=== PATIENT | female | born 1935 | race Caucasian/White ===

== ENCOUNTER 2018-04-02 18:13 | Inpatient (IN) ==
[2018-04-02] MEDS ORDERED: Morphine Inj 4 MG/ML Vial IV.PUSH ONE (19:04)
--- NOTE | 2018-04-02 19:20 | ED ---
HPI General Chief complaint: Weakness Stated complaint: weakness Time Seen by Provider: 04/02/18 18:52 Source: patient, family and EMS Mode of arrival: EMS Limitations: no limitations History of Present Illness HPI Narrative: 82-year-old female the presents to the ED for evaluation of weakness and back pain. Patient has had this for the past 2-3 days. She does have a history of back problems in the past having had a fracture sustained to her lower lumbar area at the beginning of the year. Per patient she is not from here but she is moving to this area. She apparently has been moved from [place] to this area. Apparently for the past 2 days she has been having back pain. Per patient is presently getting worse to the point where she cannot walk anymore. She states that the pain goes to both lower legs. Denies any urinary symptoms but states that she does go pee a lot and feels like she has to go a lot. No history of UTIs in the past. She does have a history of osteoporosis per patient. Denies any falls or injuries. No numbness, tingling , weakness. No chest pain or shortness of breath. No head injury. No bowel movement issues. Pain per patient is 10 out of 10 especially in the lower back. Related Data Home Medications Medication Instructions Recorded Confirmed apixaban [Eliquis] 2.5 mg PO BID 04/02/18 04/02/18 calcium carbonate-vitamin D3 1 tab PO DAILY 04/02/18 04/02/18 [Calcium 600 + D(3)] cholecalciferol (vitamin D3) 1,000 unit PO DAILY 04/02/18 04/02/18 [Vitamin D3] enalapril maleate 5 mg PO DAILY 04/02/18 04/02/18 furosemide 40 mg PO DAILY 04/02/18 04/02/18 gabapentin 100 mg PO TID 04/02/18 04/02/18 metoprolol succinate 100 mg PO BID 04/02/18 04/02/18 potassium chloride [Klor-Con M10] 10 meq PO DAILY 04/02/18 04/02/18 Allergies Allergy/AdvReac Type Severity Reaction Status Date / Time No Known Allergies Allergy Verified 04/02/18 18:50 Review of Systems ROS: all other systems reviewed are negative [facility] Medical History Medical History A-fib (Acute) HTN (hypertension) (Acute) Lumbar vertebral fracture (Acute) Social History Social History Substance History: No History of Abuse Second Hand Smoke Exposure: No Smoking Status: Never smoker How Often Do You Have a Drink Containing Alcohol: Never Recent Travel in [facility] within the Last 8 Weeks: No Recent Out of Country Travel within the Last 8 Weeks: No Immunization History Tetanus Immunization: Unsure Exam Narrative Exam Narrative: GENERAL: Well groomed. SKIN: Focused skin assessment warm/dry. HEAD: Atraumatic. Normocephalic. EYES: Pupils equal and round. No scleral icterus. No injection or drainage. ENT: No nasal bleeding or discharge. Mucous membranes pink and moist. NECK: Trachea midline. No JVD. CARDIOVASCULAR: Regular rate and rhythm. No murmur appreciated. RESPIRATORY: No accessory muscle use. Clear to auscultation. Breath sounds equal bilaterally. GASTROINTESTINAL: Abdomen soft, non-tender, nondistended. Hepatic and splenic margins not palpable. MUSCULOSKELETAL: No obvious deformities. No clubbing. No cyanosis. No edema. NEUROLOGICAL: Awake and alert. No obvious cranial nerve deficits. Motor grossly within normal limits. Normal speech. PSYCHIATRIC: Appropriate mood and affect; insight and judgment normal. Course Initial Documented Vital Signs Temperature 98.6 F 04/02/18 18:42 Pulse Rate 77 04/02/18 18:42 Respiratory Rate 24 04/02/18 18:42 Blood Pressure 150/70 H 04/02/18 18:42 Pulse Oximetry 95 04/02/18 18:42 Last Documented Vital Signs Temperature 97.2 F L 04/03/18 08:00 Pulse Rate 62 04/03/18 08:00 Respiratory Rate 18 04/03/18 11:07 Blood Pressure 139/89 04/03/18 08:00 Pulse Oximetry 95 04/03/18 09:41 Medical Decision Making MDM Narrative Medical decision making narrative: 82-year-old female that presents to the ED for evaluation of back pain and weakness. Patient was properly examined and was found to have signs and symptoms concerning for fractures. Labs and imaging were ordered. Labs and imaging did show what appears to be bacteriuria as well as what appears to be acute L4 fracture. Patient does have multiple compression fractures from her old injury. Patient also feels better with the pain medication cannot really sit up without having severe pain. Patient lives with an elderly family member and informed she is in a safe discharge. The recommend admission for further evaluation and treatment. Patient herself seems to prefer no surgical options but I think it would be reasonable to have a neurosurgeon evaluate her to see if she will benefit from this. She does have severe osteoporosis versus Paget's disease and will require treatment for this as well. Patient agrees with admission plan. Case discussed with Dr. Ely who agrees to admission to her service. Medical Screen Exam Complete: Yes Emergency Medical Condition: Yes Differential Diagnosis Differential Diagnosis: Fracture versus bruise versus contusion versus weakness versus UTI versus sepsis Medical Records Medical records reviewed: Yes I reviewed the patient's medical records. Lab Data Lab results reviewed: Yes I reviewed the patient's lab results. Result diagrams: 04/03/18 05:02 04/03/18 05:02 Lab Results 04/02/18 04/02/18 04/02/18 Range/Units 19:36 19:36 19:36 WBC (4.0-11.0) th/mm3 RBC (4.00-5.30) mil/mm3 Hgb (11.6-15.3) gm/dL Hct (35.0-46.0) % MCV (80.0-100.0) fL MCH (27.0-34.0) pg MCHC (32.0-36.0) % RDW (11.6-17.2) % Plt Count (150-450) th/mm3 MPV (7.0-11.0) fL Neut % (Auto) (16.0-70.0) % Lymph % (Auto) (9.0-44.0) % Hunt % (Auto) (0.0-8.0) % Eos % (Auto) (0.0-4.0) % Baso % (Auto) (0.0-2.0) % Neut # (Auto) (1.8-7.7) th/mm3 Lymph # (Auto) (1.0-4.8) th/mm3 Hunt # (Auto) (0.0-0.9) th/mm3 Eos # (Auto) (0.0-0.4) th/mm3 Baso # (Auto) (0.0-0.2) th/mm3 WBC Differential Differential Comment PT 11.8 H (9.8-11.6) sec INR 1.2 Ratio Sodium (136-145) meq/L Potassium (3.5-5.1) meq/L Chloride (98-107) meq/L Carbon Dioxide (21.0-32.0) meq/L Anion Gap (5-15) meq/L BUN (7-18) mg/dL Creatinine (0.50-1.00) mg/dL Estimated GFR (>89) mL/min Random Glucose (74-106) mg/dL Hemoglobin A1c (4.3-6.0) % Calcium (8.5-10.1) mg/dL Magnesium (1.5-2.5) mg/dL Total Bilirubin (0.2-1.0) mg/dL AST (15-37) U/L ALT (10-53) U/L Alkaline Phosphatase (45-117) U/L Troponin I (0.02-0.05) ng/mL B-Natriuretic Peptide 166 H (0-100) pg/mL Total Protein (6.4-8.2) g/dL Albumin (3.4-5.0) g/dL Urine Color Yellow (Yellw/Straw) Urine Clarity Clear (Clear) Urine pH 5.0 (5.0-8.5) Ur Specific Dumas 1.010 (1.002-1.035) Urine Protein Negative (Neg-Trace) mg/dL Urine Glucose (UA) Negative (Negative) mg/dL Urine Ketones Negative (Negative) mg/dL Urine Occult Blood Small H (Negative) Urine Nitrate Negative (Negative) Urine Bilirubin Negative (Negative) Urine Urobilinogen Less than 2 (Less than 2) mg/dL Ur Leukocyte Esterase Negative (Negative) Urine RBC 1 (0-3) /hpf Urine WBC 2 (0-5) /hpf Ur Squamous Epith Cells 3 (0-5) /hpf Urine Bacteria Rare H (None) /hpf Granular Casts 9 (None) /lpf Urine Mucus Few H (Occasional) /lpf Micro UA Comment Culture not ind Ur Microscopic Review Not Reportable Urine Culture Comments Culture not ind 04/02/18 04/02/18 04/03/18 Range/Units 19:52 19:52 05:02 WBC 9.0 4.5 (4.0-11.0) th/mm3 RBC 4.15 4.06 (4.00-5.30) mil/mm3 Hgb 12.4 12.1 (11.6-15.3) gm/dL Hct 36.8 36.3 (35.0-46.0) % MCV 88.7 89.4 (80.0-100.0) fL MCH 29.8 29.8 (27.0-34.0) pg MCHC 33.6 33.3 (32.0-36.0) % RDW 15.8 15.6 (11.6-17.2) % Plt Count 163 140 L (150-450) th/mm3 MPV 9.1 8.9 (7.0-11.0) fL Neut % (Auto) 69.1 83.6 H (16.0-70.0) % Lymph % (Auto) 21.2 14.5 (9.0-44.0) % Hunt % (Auto) 9.0 H 1.8 (0.0-8.0) % Eos % (Auto) 0.4 0.0 (0.0-4.0) % Baso % (Auto) 0.3 0.1 (0.0-2.0) % Neut # (Auto) 6.2 3.8 (1.8-7.7) th/mm3 Lymph # (Auto) 1.9 0.7 L (1.0-4.8) th/mm3 Hunt # (Auto) 0.8 0.1 (0.0-0.9) th/mm3 Eos # (Auto) 0.0 0.0 (0.0-0.4) th/mm3 Baso # (Auto) 0.0 0.0 (0.0-0.2) th/mm3 WBC Differential . . Differential Comment Auto diff final Auto diff final PT (9.8-11.6) sec INR Ratio Sodium 141 (136-145) meq/L Potassium 3.5 (3.5-5.1) meq/L Chloride 103 (98-107) meq/L Carbon Dioxide 30.1 (21.0-32.0) meq/L Anion Gap 8 (5-15) meq/L BUN 23 H (7-18) mg/dL Creatinine 0.94 (0.50-1.00) mg/dL Estimated GFR 57 L (>89) mL/min Random Glucose 100 (74-106) mg/dL Hemoglobin A1c (4.3-6.0) % Calcium 8.1 L (8.5-10.1) mg/dL Magnesium 1.9 (1.5-2.5) mg/dL Total Bilirubin 0.8 (0.2-1.0) mg/dL AST 18 (15-37) U/L ALT 11 (10-53) U/L Alkaline Phosphatase 128 H (45-117) U/L Troponin I Less than 0.02 L (0.02-0.05) ng/mL B-Natriuretic Peptide (0-100) pg/mL Total Protein 6.7 (6.4-8.2) g/dL Albumin 2.9 L (3.4-5.0) g/dL Urine Color (Yellw/Straw) Urine Clarity (Clear) Urine pH (5.0-8.5) Ur Specific Dumas (1.002-1.035) Urine Protein (Neg-Trace) mg/dL Urine Glucose (UA) (Negative) mg/dL Urine Ketones (Negative) mg/dL Urine Occult Blood (Negative) Urine Nitrate (Negative) Urine Bilirubin (Negative) Urine Urobilinogen (Less than 2) mg/dL Ur Leukocyte Esterase (Negative) Urine RBC (0-3) /hpf Urine WBC (0-5) /hpf Ur Squamous Epith Cells (0-5) /hpf Urine Bacteria (None) /hpf Granular Casts (None) /lpf Urine Mucus (Occasional) /lpf Micro UA Comment Ur Microscopic Review Urine Culture Comments 04/03/18 04/03/18 Range/Units 05:02 05:02 WBC (4.0-11.0) th/mm3 RBC (4.00-5.30) mil/mm3 Hgb (11.6-15.3) gm/dL Hct (35.0-46.0) % MCV (80.0-100.0) fL MCH (27.0-34.0) pg MCHC (32.0-36.0) % RDW (11.6-17.2) % Plt Count (150-450) th/mm3 MPV (7.0-11.0) fL Neut % (Auto) (16.0-70.0) % Lymph % (Auto) (9.0-44.0) % Hunt % (Auto) (0.0-8.0) % Eos % (Auto) (0.0-4.0) % Baso % (Auto) (0.0-2.0) % Neut # (Auto) (1.8-7.7) th/mm3 Lymph # (Auto) (1.0-4.8) th/mm3 Hunt # (Auto) (0.0-0.9) th/mm3 Eos # (Auto) (0.0-0.4) th/mm3 Baso # (Auto) (0.0-0.2) th/mm3 WBC Differential Differential Comment PT (9.8-11.6) sec INR Ratio Sodium 141 (136-145) meq/L Potassium 4.7 D (3.5-5.1) meq/L Chloride 100 (98-107) meq/L Carbon Dioxide 33.3 H (21.0-32.0) meq/L Anion Gap 8 (5-15) meq/L BUN 29 H (7-18) mg/dL Creatinine 1.14 H (0.50-1.00) mg/dL Estimated GFR 46 L (>89) mL/min Random Glucose 142 H (74-106) mg/dL Hemoglobin A1c 5.9 (4.3-6.0) % Calcium 9.0 D (8.5-10.1) mg/dL Magnesium (1.5-2.5) mg/dL Total Bilirubin (0.2-1.0) mg/dL AST (15-37) U/L ALT (10-53) U/L Alkaline Phosphatase (45-117) U/L Troponin I (0.02-0.05) ng/mL B-Natriuretic Peptide (0-100) pg/mL Total Protein (6.4-8.2) g/dL Albumin (3.4-5.0) g/dL Urine Color (Yellw/Straw) Urine Clarity (Clear) Urine pH (5.0-8.5) Ur Specific Dumas (1.002-1.035) Urine Protein (Neg-Trace) mg/dL Urine Glucose (UA) (Negative) mg/dL Urine Ketones (Negative) mg/dL Urine Occult Blood (Negative) Urine Nitrate (Negative) Urine Bilirubin (Negative) Urine Urobilinogen (Less than 2) mg/dL Ur Leukocyte Esterase (Negative) Urine RBC (0-3) /hpf Urine WBC (0-5) /hpf Ur Squamous Epith Cells (0-5) /hpf Urine Bacteria (None) /hpf Granular Casts (None) /lpf Urine Mucus (Occasional) /lpf Micro UA Comment Ur Microscopic Review Urine Culture Comments Imaging Data Attestation: I personally reviewed and interpreted this imaging study as follows : Radiologist's impression: Lumbar Spine CT 04/02/18 19:04 CONCLUSION: 1. Horizontal lucency seen throughout the L4 vertebral body concerning for acute fracturing through the L4 vertebral body. There is thickening of the trabecula, increased density in the pedicles and lamina concerning for underlying processes such as Paget's disease. Other causes for sclerosis including prior infection or metastatic lesions could have this appearance. 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 2. Compression deformities at the T12, L1, L2 and L3 vertebral bodies as described above. These are likely chronic. Thoracic Spine CT 04/02/18 19:04 CONCLUSION: 1. Mild superior endplate compression fracture of T12. 2. Severe central wedge-shaped compression deformity of L1. 3. Mild compression deformity of L3 superior endplate. 4. These compression fractures are of unknown chronicity given lack of prior exams. If patient has pain on palpation of the spinous processes at these levels , consider MRI examination to evaluate for bone marrow edema and determine if patient may benefit from cement augmentation. 5. No significant bony central canal or neural foraminal compromise. 6. Coronary artery calcifications. 7. Mild diffuse patchy groundglass opacities in the visualized portions of the lungs which may reflect mild pulmonary edema or diffuse volume loss. 8. Mild to moderate hiatal hernia. Venous Doppler Study 04/02/18 19:05 CONCLUSION: No DVT. Chest X-Ray 04/02/18 22:24 CONCLUSION: Underinflated examination with mild subsegmental atelectasis at the lung bases. Otherwise, no acute cardiopulmonary abnormality is identified. Lumbar Spine MRI 04/03/18 00:00 CONCLUSION: 1. Extensive compression fractures throughout the lumbar spine with chronic appearing injuries from T12 through L3. 2. Vertebral plana of L4 with central bony edema characteristic of an acute or subacute injury. 3. Bony edema in the articulating facets at L4 bilaterally. This may be chronic as there is significant facet hypertrophy bilaterally. 4. I believe there is also an acute or subacute fracture through the S1 vertebral body superiorly with possible acute or subacute fractures through the articulating facets at the lumbosacral junction. 5. Despite the extensive compression fractures of varying ages, the spinal canal and neural foramina appear to be adequate throughout with no nerve root compromise. Thoracic Spine MRI 04/03/18 00:00 CONCLUSION: 1. Chronic T12 compression fracture. 2. 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 3. No significant neural foraminal narrowing. Discharge Plan Discharge Disposition Patient Disposition: 30 Still Patient Discharge Details Diagnosis: Closed L4 vertebral fracture, Weakness Physicians Team ED Provider: Elayne Acosta ED Midlevel Provider: Juan Antonio Childs Primary Care Provider: NON STAFF,PROVIDER Attending Provider: Mauro Martell Other Providers: Asaf Egan ; [employer] Status ED Status: Left Department Discharge Information Discharge Date/Time: 04/03/18 00:28
--- NOTE | 2018-04-02 20:34 | CT ---
EXAM DATE: 04/02/2018 7:28 PM EDT AGE/SEX: 82 years / Female INDICATIONS: Chronic back pain. General weakness. CLINICAL DATA: This is the patient's initial encounter. Patient reports that signs and symptoms have been present for 4 - 6 months and indicates a pain score of 10/10. MEDICAL/SURGICAL HISTORY: Hypertension. A-Fib. . Lumbar surgery. RADIATION DOSE: 35.86 CTDI (mGy) ; Combined studies COMPARISON: No prior exams available for comparison. TECHNIQUE: Contiguous axial images were acquired using a multirow detector CT scanner without contra st. Multiplanar reconstruction in the sagittal and coronal planes was performed. Using automated exp osure control and adjustment of the mA and/or kV according to patient size, radiation dose was kept a s low as reasonably achievable to obtain optimal diagnostic quality images. DICOM format image data is available electronically for review and comparison. FINDINGS: Moderate superior endplate compression deformity of T12. Without retropulsed fragments. Severe centra l wedge-shaped compression deformity of L1. Mild compression deformity of L3 superior endplate. No re tropulsed fragments. Exaggerated kyphosis of the lumbar spine. Sagittal alignment is however maintain ed. Bony central canal is grossly patent. Bridging flowing anterior osteophytes in the proximal thora cic spine. Because paraspinal soft tissues demonstrate coronary artery calcifications. Visualized tho racic aorta is normal in caliber. There is a small to moderate-sized hiatal hernia. Visualized portio ns of the lower lungs demonstrate mild diffuse patchy groundglass opacities bilaterally. T1 - T2: Anterior osteophytes. T2 - T3: Mild disc space narrowing and anterior osteophytes. Bony central canal and neural foramina are patent. T3 - T4: Mild disc space narrowing and anterior osteophytes. Bony central canal and neural foramina are patent. T4 - T5: Mild disc space narrowing and anterior osteophytes. Bony central canal and neural foramina are patent. T5 - T6: Mild disc space narrowing and anterior osteophytes. Bony central canal and neural foramina are patent. T6 - T7: Mild disc space narrowing and anterior osteophytes. Bony central canal and neural foramina are patent. T7 - T8: Mild disc space narrowing and anterior osteophytes. Bony central canal and neural foramina are patent. T8 - T9: Mild disc space narrowing and anterior osteophytes. Bony central canal and neural foramina are patent. T9 - T10: Mild disc space narrowing and anterior osteophytes. Bony central canal and neural foramina are patent. T10 - T11: Mild diffuse disc bulge. Bony central canal and neural foramina are patent. T11 - T12: Vacuum disc phenomenon with mild posterior disc osteophytes. Bony central canal is patent . Mild right-sided bony neural foraminal narrowing. T12 - L1: Posterior disc osteophytes. Bony central canal is patent. Bony neural foramina are patent. Mild bilateral facet arthropathy. CONCLUSION: 1. Mild superior endplate compression fracture of T12. 2. Severe central wedge-shaped compression deformity of L1. 3. Mild compression deformity of L3 superior endplate. 4. These compression fractures are of unknown chronicity given lack of prior exams. If patient has p ain on palpation of the spinous processes at these levels, consider MRI examination to evaluate for b one marrow edema and determine if patient may benefit from cement augmentation. 5. No significant bony central canal or neural foraminal compromise. 6. Coronary artery calcifications. 7. Mild diffuse patchy groundglass opacities in the visualized portions of the lungs which may refle ct mild pulmonary edema or diffuse volume loss. 8. Mild to moderate hiatal hernia. Electronically signed by: Tayo Mendez MD 04/02/2018 8:32 PM EDT
--- NOTE | 2018-04-02 20:50 | CT ---
EXAM DATE: 04/02/2018 7:28 PM EDT AGE/SEX: 82 years / Female INDICATIONS: Chronic lower back pain. General weakness. CLINICAL DATA: This is the patient's initial encounter. Patient reports that signs and symptoms have been present for 4 - 6 months and indicates a pain score of 10/10. MEDICAL/SURGICAL HISTORY: Hypertension. A-Fib. . Lumbar fracture. RADIATION DOSE: 35.86 CTDI (mGy) ; Combined studies COMPARISON: [facility] [place] THORACIC SPINE W/O CONTRAST, 04/02/2018. . TECHNIQUE: Contiguous axial images were acquired with a multirow detector CT scanner without contras t. Multiplanar reconstructions in the sagittal and coronal plane were also performed. Using automate d exposure control and adjustment of the mA and/or kV according to patient size, radiation dose was k ept as low as reasonably achievable to obtain optimal diagnostic quality images. DICOM format image data is available electronically for review and comparison. FINDINGS: Vertebrae: There is a concave deformity of the superior aspect of T12 more fully described in the CT of the thoracic spine. There are biconcave deformities seen at the superior and inferior plates of L 1 and L4, and to a lesser degree at the L2 vertebral bodies. There is a concave deformity at the supe rior endplate of L3. There is been over 75% loss of height at L1 and L4. There is milder 50% loss of height at T12, L2 and L3. There is increased density throughout the L4 level extending into the poste rior elements which could represent underlying processes such as Paget's disease or metastatic diseas e. There is horizontal lucency seen throughout the L4 vertebral body concerning for more acute fract uring of the body L4 vertebral body. Alignment: Normal. No subluxation. T12-L1: Again noted is the compression deformities at the superior endplate of L1. There is some pos terior angulation at the posterior superior aspect of the L1 vertebral body causing a mild impression on the anterior epidural space. The disc appears intact. No evidence of disc bulge or protrusion. The neural foramina are patent bilaterally. L1-L2: The thecal sac has a normal diameter. No evidence of disc bulge or protrusion. The neural f oramina are patent bilaterally. L2-L3: Again noted is the compression deformity at the superior endplate of L3. There is some geothermal operations engineer ior angulation at the posterior superior aspect of the L3 vertebral body causing a mild impression on the anterior epidural space. The disc appears intact. No evidence of disc bulge or protrusion. The neural foramina are patent bilaterally. The thecal sac has a normal diameter. No evidence of disc bulge or protrusion. The neural foramina are patent bilaterally. L3-L4: The posterior disc margin appears intact. There is hypertrophy and bony thickening at the L4 pedicle and lamina. There appear to be fusion at the facet joints. These changes do cause mild narrow ing of the thecal sac especially at the posterior lateral margins of the thecal sac. L4-L5: The thecal sac has a normal diameter. No evidence of disc bulge or protrusion. The neural fo ramina are patent bilaterally. There is facet hypertrophy. L5-S1: The disc demonstrates decreased height. There is minimal bulging without significant stenosis . The neural foramina are patent. There is moderate facet hypertrophy. CONCLUSION: 1. Horizontal lucency seen throughout the L4 vertebral body concerning for acute fracturing through the L4 vertebral body. There is thickening of the trabecula, increased density in the pedicles and la nuha concerning for underlying processes such as Paget's disease. Other causes for sclerosis includin g prior infection or metastatic lesions could have this appearance. Paget's disease is thought more l ikely. 2. Compression deformities at the T12, L1, L2 and L3 vertebral bodies as described above. These are likely chronic. Electronically signed by: Martín Schultz MD 04/02/2018 8:48 PM EDT
--- NOTE | 2018-04-02 21:00 | US ---
EXAM DATE: 04/02/2018 7:05 PM EDT AGE/SEX: 82 years / Female INDICATIONS: Bilateral leg edema. CLINICAL DATA: This is the patient's initial encounter. Patient reports that signs and symptoms have been present for 1 month and indicates a pain score of 4/10. MEDICAL/SURGICAL HISTORY: Hypertension. Lumbar fracture. Afib. None. COMPARISON: No prior exams available for comparison. TECHNIQUE: Venous ultrasound of both lower extremities was performed from the inguinal ligament to t he proximal calf. Real-time, color Doppler and spectral tracing, compression and augmentation techni ques were used. FINDINGS: Right Leg: Normal compression of the deep venous system from the inguinal region to the proximal bishnu f. No echogenic clot is seen. Normal response of the venous system to augmentation and respiration. Left Leg: Normal compression of the deep venous system from the inguinal region to the proximal calf . No echogenic clot is seen. Normal response of the venous system to augmentation and respiration. Other: None. CONCLUSION: No DVT. Electronically signed by: Martín Schultz MD 04/02/2018 8:59 PM EDT
[2018-04-02 21:11] LABS: Bacteria,Urine Rare /hpf; Bilirubin,Urine Negative (Negative); Clarity,Urine Clear (Clear); Color,Urine Yellow (Yellw/Straw); Glucose,Urine (UA) Negative (Negative); Leukocyte Esterase,Urine Negative (Negative); Mucus,Urine Few /lpf (Occasional); Nitrite,Urine Negative (Negative); Squamous Epithelial Cell,Urine 3 /hpf (0-5)
[2018-04-02 21:15] LABS: Baso % (Auto) 0.3 % (0.0-2.0); Eos % (Auto) 0.4 % (0.0-4.0); Hematocrit 36.8 % (35.0-46.0); Hemoglobin 12.4 gm/dL (11.6-15.3); Lymph # (Auto) 1.9 th/mm3 (1.0-4.8); Lymph % (Auto) 21.2 % (9.0-44.0); Mean Corpuscular HGB Conc 33.6 % (32.0-36.0); Mean Corpuscular Hemoglobin 29.8 pg (27.0-34.0); Mean Corpuscular Volume 88.7 fL (80.0-100.0); Mean Platelet Volume 9.1 fL (7.0-11.0); Mono # (Auto) 0.8 th/mm3 (0.0-0.9); Neut # (Auto) 6.2 th/mm3 (1.8-7.7); Neut % (Auto) 69.1 % (16.0-70.0); Platelet Count 163 th/mm3 (150-450); Red Blood Count 4.15 mil/mm3 (4.00-5.30); Red Cell Distribution Width 15.8 % (11.6-17.2)
[2018-04-02 21:18] LABS: INR 1.2 Ratio; Prothrombin Time 11.8 sec (9.8-11.6)
[2018-04-02 21:28] LABS: Alanine Aminotransferase 11 U/L (10-53)
[2018-04-02 21:31] LABS: Alkaline Phosphatase 128 U/L (45-117); Total Protein 6.7 g/dL (6.4-8.2)
[2018-04-02 21:34] LABS: Albumin 2.9 g/dL (3.4-5.0); Anion Gap 8 meq/L (5-15); Aspartate Aminotransferase 18 U/L (15-37); Blood Urea Nitrogen 23 mg/dL (7-18); Calcium 8.1 mg/dL (8.5-10.1); Carbon Dioxide 30.1 meq/L (21.0-32.0); Chloride 103 meq/L (98-107); Glomerular Filtration Rate 57 mL/min (>89); Glucose,Random 100 mg/dL (74-106); Magnesium 1.9 mg/dL (1.5-2.5); Potassium 3.5 meq/L (3.5-5.1); Sodium 141 meq/L (136-145)
[2018-04-02] MEDS ORDERED: Acetaminophen 325 MG Tablet PO PRN (22:54)
[2018-04-02] MEDS ORDERED: Bisacodyl 10 MG Supp RECTAL PRN (22:54)
--- NOTE | 2018-04-02 22:58 | XR ---
EXAM DATE: 04/02/2018 10:24 PM EDT AGE/SEX: 82 years / Female INDICATIONS: Shortness of breath. CLINICAL DATA: This is the patient's initial encounter. Patient reports that signs and symptoms have been present for 2 days and indicates a pain score of 0/10. MEDICAL/SURGICAL HISTORY: None. None. COMPARISON: No prior exams available for comparison. FINDINGS: Portable AP view of the chest demonstrates a normal-sized cardiac silhouette with calcification of th e aorta. EKG lines overlie the patient. Lungs are underinflated with mild subsegmental atelectasis at the lung bases. Otherwise, no effusion, consolidation, or pneumothorax is identified. The bones and soft tissues demonstrate no acute abnormality. CONCLUSION: Underinflated examination with mild subsegmental atelectasis at the lung bases. Otherwise, no acute c ardiopulmonary abnormality is identified. Electronically signed by: Martín Diaz MD 04/02/2018 10:57 PM EDT
--- NOTE | 2018-04-02 23:03 | P.HP ---
History of Present Illness Service: [facility] Primary Care Physician: PROVIDER NON STAFF History of Present Illness: 82-year-old female with a past medical history significant for atrial fibrillation anticoagulated on Eliquis, hypertension and hyperlipidemia presents to the emergency department for evaluation 2 days. The patient also complains of pain in her bilateral hips that radiates down the lateral aspects of her legs to her knees. She denies any traumatic events or falls. In June she had a similar at the where she tried to stand up from sitting and was unable to do so. She was diagnosed with an L4 and L5 vertebral fractures, discharged to rehab which she completed and continued physical therapy at home. The patient denies any bowel or bladder incontinence. No bilateral lower extremity weakness. No chest pain or shortness of breath. No fever/chills. No abdominal pain. No nausea/vomiting/diarrhea. No lateralizing signs/ symptoms. Review of Systems All other systems reviewed negative except as stated in HPI [facility] - History History Provided By: Patient, Garment Inspector / EMT - Medical History Medical History: Medical History (Last Updated 04/02/18 @ 22:59 by Jasmine Ely MD) A-fib HTN (hypertension) Hyperlipidemia Lumbar vertebral fracture - Surgical History Surgical History: Surgical History (Last Updated 04/02/18 @ 22:59 by Jasmine Ely MD) History of lumpectomy - Family History Family History: Family History (Last Updated 04/02/18 @ 23:00 by Jasmine Ely MD) Other Hypertension - Tobacco History Smoking Status: Never smoker - Alcohol History How Often Do You Have a Drink Containing Alcohol: Never - Substance Use History Substance History: No History of Abuse - Travel History Recent Travel in the [place] Within the Last 8 Weeks: No Recent Travel Out of the Country Within the Last 8 Weeks: No - Immunization History Tetanus Immunization: Unsure Medications and Allergies Active Medications: Active Medications Acetaminophen (Tylenol) 650 mg PO Q4H PRN PRN Reason: Temp > 100.4 Al Hydroxide/Mg Hydroxide (Milk Of Magnesia Liq) 30 ml PO Q12H PRN PRN Reason: Mild Constipation Bisacodyl (Dulcolax Supp) 10 mg RECTAL DAILY PRN PRN Reason: SEVERE CONSITIPATION Enalapril Maleate (Vasotec) 5 mg PO DAILY NIELS Furosemide (Lasix) 40 mg PO DAILY NIELS Gabapentin (Neurontin) 100 mg PO TID NIELS Sodium Chloride (Ns Inj) 1,000 mls @ 70 mls/hr IV.CONT .[id number] NIELS Lactulose (Lactulose Liq) 30 ml PO DAILY PRN PRN Reason: SEVERE CONSITIPATION Morphine Sulfate (Morphine Inj) 4 mg IV.PUSH Q4H PRN PRN Reason: pain 6-10 Non-Formulary Medication (Calcium Carbonate-Vitamin D3 [Calcium 600 + D(3)]) 1 tab PO DAILY NIELS Non-Formulary Medication (Cholecalciferol (Vitamin D3) [Vitamin D3]) 1,000 unit PO DAILY NIELS Non-Formulary Medication (Metoprolol Succinate [Metoprolol Succinate]) 100 mg PO BID NIELS Non-Formulary Medication (Potassium Chloride [Klor-Con M10]) 10 meq PO DAILY NIELS Ondansetron HCl (Zofran Inj) 4 mg IV.PUSH Q6H PRN PRN Reason: NAUSEA OR VOMITING Allergies Allergy/AdvReac Type Severity Reaction Status Date / Time No Known Allergies Allergy Verified 04/02/18 18:50 Home Medications Medication Instructions Recorded Confirmed Type apixaban [Eliquis] 2.5 mg PO BID 04/02/18 04/02/18 History calcium carbonate-vitamin D3 1 tab PO DAILY 04/02/18 04/02/18 History [Calcium 600 + D(3)] cholecalciferol (vitamin D3) 1,000 unit PO DAILY 04/02/18 04/02/18 History [Vitamin D3] enalapril maleate 5 mg PO DAILY 04/02/18 04/02/18 History furosemide 40 mg PO DAILY 04/02/18 04/02/18 History gabapentin 100 mg PO TID 04/02/18 04/02/18 History metoprolol succinate 100 mg PO BID 04/02/18 04/02/18 History potassium chloride [Klor-Con M10] 10 meq PO DAILY 04/02/18 04/02/18 History Exam Vital signs: Vital Signs 04/02/18 18:42 04/02/18 19:59 04/02/18 20:00 Temperature 98.6 F Pulse Rate 77 69 Respiratory Rate 24 24 Blood Pressure 150/70 H 159/70 H Pulse Oximetry 95 94 L 94 L Intake & Output 04/02/18 04/02/18 04/03/18 06:59 18:59 06:59 Weight 78.471 kg Narrative: Gen.: No acute distress Head: Normocephalic. Atraumatic. EENT: Pupils equal round and reactive to light. Nose without drainage. Airway intact. Throat without injection. Cardiovascular: Regular rate and rhythm. No murmurs, rubs or gallops. Respiratory: Lungs clear to auscultation bilaterally. No wheezes or rhonchi. Abdomen: Soft, nontender, nondistended. No peritoneal signs. Musculoskeletal: No gross deformities. No edema. Skin: No obvious rashes or erythema. Neuro: Sensory and motor grossly intact. Cranial nerves II through XII grossly intact. Results - Labs CBC & Chem 7: 04/02/18 19:52 04/02/18 19:52 Labs: Laboratory Results - last 24 hr 04/02/18 04/02/18 04/02/18 19:36 19:36 19:36 WBC RBC Hgb Hct MCV MCH MCHC RDW Plt Count MPV Neut % (Auto) Lymph % (Auto) [place] % (Auto) Eos % (Auto) Baso % (Auto) Neut # (Auto) Lymph # (Auto) [place] # (Auto) Eos # (Auto) Baso # (Auto) WBC Differential Differential Comment PT 11.8 H INR 1.2 Sodium Potassium Chloride Carbon Dioxide Anion Gap BUN Creatinine Estimated GFR Random Glucose Calcium Magnesium Total Bilirubin AST ALT Alkaline Phosphatase Troponin I B-Natriuretic Peptide 166 H Total Protein Albumin Urine Color Yellow Urine Clarity Clear Urine pH 5.0 Ur Specific [place] 1.010 Urine Protein Negative Urine Glucose (UA) Negative Urine Ketones Negative Urine Occult Blood Small H Urine Nitrate Negative Urine Bilirubin Negative Urine Urobilinogen Less than 2 Ur Leukocyte Esterase Negative Urine RBC 1 Urine WBC 2 Ur Squamous Epith Cells 3 Urine Bacteria Rare H Granular Casts 9 Urine Mucus Few H Micro UA Comment Culture not ind Ur Microscopic Review Not Reportable Urine Culture Comments Culture not ind 04/02/18 04/02/18 19:52 19:52 WBC 9.0 RBC 4.15 Hgb 12.4 Hct 36.8 MCV 88.7 MCH 29.8 MCHC 33.6 RDW 15.8 Plt Count 163 MPV 9.1 Neut % (Auto) 69.1 Lymph % (Auto) 21.2 [place] % (Auto) 9.0 H Eos % (Auto) 0.4 Baso % (Auto) 0.3 Neut # (Auto) 6.2 Lymph # (Auto) 1.9 [place] # (Auto) 0.8 Eos # (Auto) 0.0 Baso # (Auto) 0.0 WBC Differential . Differential Comment Auto diff final PT INR Sodium 141 Potassium 3.5 Chloride 103 Carbon Dioxide 30.1 Anion Gap 8 BUN 23 H Creatinine 0.94 Estimated GFR 57 L Random Glucose 100 Calcium 8.1 L Magnesium 1.9 Total Bilirubin 0.8 AST 18 ALT 11 Alkaline Phosphatase 128 H Troponin I Less than 0.02 L B-Natriuretic Peptide Total Protein 6.7 Albumin 2.9 L Urine Color Urine Clarity Urine pH Ur Specific [place] Urine Protein Urine Glucose (UA) Urine Ketones Urine Occult Blood Urine Nitrate Urine Bilirubin Urine Urobilinogen Ur Leukocyte Esterase Urine RBC Urine WBC Ur Squamous Epith Cells Urine Bacteria Granular Casts Urine Mucus Micro UA Comment Ur Microscopic Review Urine Culture Comments - Imaging Impressions Lumbar Spine CT 04/02/18 19:04 CONCLUSION: 1. Horizontal lucency seen throughout the L4 vertebral body concerning for acute fracturing through the L4 vertebral body. There is thickening of the trabecula, increased density in the pedicles and lamina concerning for underlying processes such as Paget's disease. Other causes for sclerosis including prior infection or metastatic lesions could have this appearance. 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 2. Compression deformities at the T12, L1, L2 and L3 vertebral bodies as described above. These are likely chronic. Thoracic Spine CT 04/02/18 19:04 CONCLUSION: 1. Mild superior endplate compression fracture of T12. 2. Severe central wedge-shaped compression deformity of L1. 3. Mild compression deformity of L3 superior endplate. 4. These compression fractures are of unknown chronicity given lack of prior exams. If patient has pain on palpation of the spinous processes at these levels , consider MRI examination to evaluate for bone marrow edema and determine if patient may benefit from cement augmentation. 5. No significant bony central canal or neural foraminal compromise. 6. Coronary artery calcifications. 7. Mild diffuse patchy groundglass opacities in the visualized portions of the lungs which may reflect mild pulmonary edema or diffuse volume loss. 8. Mild to moderate hiatal hernia. Venous Doppler Study 04/02/18 19:05 CONCLUSION: No DVT. Caprini VTE Risk Assessment Caprini VTE Risk Assessment: Moderate/High Risk (score >= 2) Caprini Risk Assessment Model: Point Value = 1 Point Value = 2 Point Value = 3 Point Value = 5 Age 41-60 Minor surgery BMI > 25 kg/m2 Swollen legs Varicose veins or History of unexplained or recurrent spontaneous Oral contraceptives or hormone replacement Sepsis (< 1 month) Serious lung disease, including pneumonia (< 1 month) Abnormal pulmonary function Acute myocardial infarction Congestive heart failure (< 1 month) History of inflammatory bowel disease Medical patient at bed rest Age 61-74 Arthroscopic surgery Major open surgery (> 45 min) Laparoscopic surgery (> 45 min) Malignancy Confined to bed (> 72 hours) Immobilizing plaster cast Central venous access Age >= 75 History of VTE Family history of VTE Factor V Leiden Prothrombin [id number] Lupus anticoagulant Anticardiolipin antibodies Elevated serum homocysteine Heparin-induced thrombocytopenia Other congenital or acquired thrombophilia Stroke (< 1 month) Elective arthroplasty Hip, pelvis, or leg fracture Acute spinal cord injury (< 1 month) Prophylaxis Regimen: Total Risk Factor Score Risk Level Prophylaxis Regimen 0-1 Low Early ambulation 2 Moderate Order ONE of the following: *Sequential Compression Device (SCD) *Heparin 5000 units SQ BID 3-4 Higher Order ONE of the following medications: *Heparin 5000 units SQ TID *Enoxaparin/Lovenox 40 mg SQ daily (WT < 150 kg, CrCl > 30 mL/min) *Enoxaparin/Lovenox 30 mg SQ daily (WT < 150 kg, CrCl > 10-29 mL/min) *Enoxaparin/Lovenox 30 mg SQ BID (WT < 150 kg, CrCl > 30 mL/min) AND/OR *Sequential Compression Device (SCD) 5 or more Highest Order ONE of the following medications: *Heparin 5000 units SQ TID (Preferred with Epidurals) *Enoxaparin/Lovenox 40 mg SQ daily (WT < 150 kg, CrCl > 30 mL/min) *Enoxaparin/Lovenox 30 mg SQ daily (WT < 150 kg, CrCl > 10-29 mL/min) *Enoxaparin/Lovenox 30 mg SQ BID (WT < 150 kg, CrCl > 30 mL/min) AND *Sequential Compression Device (SCD) Assessment and Plan - Plan Assessment/plan: 1. Multiple vertebral fractures CT of the lumbar and thoracic spine significant for compression deformities at T12, L1, L2 and L3 vertebral bodies that are likely chronic. There is a horizontal lucency seen throughout the L4 vertebral body concerning for acute fracturing. MRI of the lumbar/thoracic spine pending Neurosurgery consulted, appreciate assistance Physical therapy 2. Atrial fibrillation Holding home Eliquis until cleared by neurosurgery Continue home medications 3. Hypertension/hyperlipidemia Continue home medications FEN N.p.o. Electrolytes: Sleep as needed NS at 70 cc/hour Holding pharmacologic anticoagulation for possible intervention
[2018-04-02] MEDS: Sod Chloride 0.9% Inj 1,000 ML IV.CONT SCH (23:27)
[2018-04-03 07:10] LABS: Baso % (Auto) 0.1 % (0.0-2.0); Hematocrit 36.3 % (35.0-46.0); Hemoglobin 12.1 gm/dL (11.6-15.3); Lymph # (Auto) 0.7 th/mm3 (1.0-4.8); Lymph % (Auto) 14.5 % (9.0-44.0); Mean Corpuscular HGB Conc 33.3 % (32.0-36.0); Mean Corpuscular Hemoglobin 29.8 pg (27.0-34.0); Mean Corpuscular Volume 89.4 fL (80.0-100.0); Mean Platelet Volume 8.9 fL (7.0-11.0); Mono # (Auto) 0.1 th/mm3 (0.0-0.9); Mono % (Auto) 1.8 % (0.0-8.0); Neut # (Auto) 3.8 th/mm3 (1.8-7.7); Neut % (Auto) 83.6 % (16.0-70.0); Platelet Count 140 th/mm3 (150-450); Red Blood Count 4.06 mil/mm3 (4.00-5.30); Red Cell Distribution Width 15.6 % (11.6-17.2); White Blood Count 4.5 th/mm3 (4.0-11.0)
[2018-04-03 07:31] LABS: Carbon Dioxide 33.3 meq/L (21.0-32.0)
[2018-04-03 07:32] LABS: Potassium 4.7 meq/L (3.5-5.1)
[2018-04-03] MEDS: Gabapentin 100 MG Capsule PO SCH ×3 (08:16→18:18)
[2018-04-03] MEDS ORDERED: Furosemide 40 MG Tablet PO SCH (09:00)
[2018-04-03] MEDS ORDERED: Potassium Chloride 10 MEQ ER Capsule PO SCH (09:00)
--- NOTE | 2018-04-03 09:25 | P.PN ---
Subjective Interval history: Follow up on patient with acute compression fracture L4. Patient seen and examined. Patient says her back is feeling ok. She denies any chest pain or dyspnea. She denies any fever or chills. She denies any nausea or vomiting. She reports some abdominal discomfort due to not having a bowel movement yet today. She says she has been doing therapy exercises at home. Physical Exam Vital signs: Vital Signs 04/02/18 18:42 04/02/18 19:59 04/02/18 20:00 Temperature 98.6 F Pulse Rate 77 69 Respiratory Rate 24 24 Blood Pressure 150/70 H 159/70 H Pulse Oximetry 95 94 L 94 L 04/03/18 00:00 04/03/18 00:28 04/03/18 04:00 Temperature 97.4 F L 98.0 F Pulse Rate 72 51 L 65 Respiratory Rate 18 16 16 Blood Pressure 153/74 H 151/64 H 127/60 Pulse Oximetry 94 L 92 L 95 Intake & Output 04/02/18 04/03/18 04/03/18 18:59 06:59 18:59 Weight 78.471 kg 78.471 kg Other: # Voids 4 Date of Last Bowel Movement 04/01/18 Weight On Admission 78.471 kg Narrative: GENERAL: WDWN female patient, INAD. Awake and alert. SKIN: Warm and dry. HEAD: Atraumatic. Normocephalic. EYES: Pupils equal and round. No scleral icterus. No injection or drainage. ENT: No nasal bleeding or discharge. Mucous membranes pink and moist. NECK: Trachea midline. CARDIOVASCULAR: Regular rate and rhythm. RESPIRATORY: No accessory muscle use. Clear to auscultation. Breath sounds equal bilaterally. GASTROINTESTINAL: Abdomen soft, nondistended. +mild diffuse tenderness to palpation. +BS. MUSCULOSKELETAL: Extremities without clubbing, cyanosis, or edema. No obvious deformities. NEUROLOGICAL: Awake and alert. No obvious cranial nerve deficits. Motor grossly within normal limits. Able to move all extremities spontaneously. Normal speech. PSYCHIATRIC: Appropriate mood and affect; insight and judgment normal. Results - Labs CBC & Chem 7: 04/03/18 05:02 04/03/18 05:02 Laboratory Results - last 24 hr 04/02/18 04/02/18 04/02/18 19:36 19:36 19:36 WBC RBC Hgb Hct MCV MCH MCHC RDW Plt Count MPV Neut % (Auto) Lymph % (Auto) [place] % (Auto) Eos % (Auto) Baso % (Auto) Neut # (Auto) Lymph # (Auto) [place] # (Auto) Eos # (Auto) Baso # (Auto) WBC Differential Differential Comment PT 11.8 H INR 1.2 Sodium Potassium Chloride Carbon Dioxide Anion Gap BUN Creatinine Estimated GFR Random Glucose Calcium Magnesium Total Bilirubin AST ALT Alkaline Phosphatase Troponin I B-Natriuretic Peptide 166 H Total Protein Albumin Urine Color Yellow Urine Clarity Clear Urine pH 5.0 Ur Specific [place] 1.010 Urine Protein Negative Urine Glucose (UA) Negative Urine Ketones Negative Urine Occult Blood Small H Urine Nitrate Negative Urine Bilirubin Negative Urine Urobilinogen Less than 2 Ur Leukocyte Esterase Negative Urine RBC 1 Urine WBC 2 Ur Squamous Epith Cells 3 Urine Bacteria Rare H Granular Casts 9 Urine Mucus Few H Micro UA Comment Culture not ind Ur Microscopic Review Not Reportable Urine Culture Comments Culture not ind 04/02/18 04/02/18 04/03/18 19:52 19:52 05:02 WBC 9.0 4.5 RBC 4.15 4.06 Hgb 12.4 12.1 Hct 36.8 36.3 MCV 88.7 89.4 MCH 29.8 29.8 MCHC 33.6 33.3 RDW 15.8 15.6 Plt Count 163 140 L MPV 9.1 8.9 Neut % (Auto) 69.1 83.6 H Lymph % (Auto) 21.2 14.5 [place] % (Auto) 9.0 H 1.8 Eos % (Auto) 0.4 0.0 Baso % (Auto) 0.3 0.1 Neut # (Auto) 6.2 3.8 Lymph # (Auto) 1.9 0.7 L [place] # (Auto) 0.8 0.1 Eos # (Auto) 0.0 0.0 Baso # (Auto) 0.0 0.0 WBC Differential . . Differential Comment Auto diff final Auto diff final PT INR Sodium 141 Potassium 3.5 Chloride 103 Carbon Dioxide 30.1 Anion Gap 8 BUN 23 H Creatinine 0.94 Estimated GFR 57 L Random Glucose 100 Calcium 8.1 L Magnesium 1.9 Total Bilirubin 0.8 AST 18 ALT 11 Alkaline Phosphatase 128 H Troponin I Less than 0.02 L B-Natriuretic Peptide Total Protein 6.7 Albumin 2.9 L Urine Color Urine Clarity Urine pH Ur Specific [place] Urine Protein Urine Glucose (UA) Urine Ketones Urine Occult Blood Urine Nitrate Urine Bilirubin Urine Urobilinogen Ur Leukocyte Esterase Urine RBC Urine WBC Ur Squamous Epith Cells Urine Bacteria Granular Casts Urine Mucus Micro UA Comment Ur Microscopic Review Urine Culture Comments 04/03/18 05:02 WBC RBC Hgb Hct MCV MCH MCHC RDW Plt Count MPV Neut % (Auto) Lymph % (Auto) [place] % (Auto) Eos % (Auto) Baso % (Auto) Neut # (Auto) Lymph # (Auto) [place] # (Auto) Eos # (Auto) Baso # (Auto) WBC Differential Differential Comment PT INR Sodium 141 Potassium 4.7 D Chloride 100 Carbon Dioxide 33.3 H Anion Gap 8 BUN 29 H Creatinine 1.14 H Estimated GFR 46 L Random Glucose 142 H Calcium 9.0 D Magnesium Total Bilirubin AST ALT Alkaline Phosphatase Troponin I B-Natriuretic Peptide Total Protein Albumin Urine Color Urine Clarity Urine pH Ur Specific [place] Urine Protein Urine Glucose (UA) Urine Ketones Urine Occult Blood Urine Nitrate Urine Bilirubin Urine Urobilinogen Ur Leukocyte Esterase Urine RBC Urine WBC Ur Squamous Epith Cells Urine Bacteria Granular Casts Urine Mucus Micro UA Comment Ur Microscopic Review Urine Culture Comments - Imaging Impressions Lumbar Spine CT 04/02/18 19:04 CONCLUSION: 1. Horizontal lucency seen throughout the L4 vertebral body concerning for acute fracturing through the L4 vertebral body. There is thickening of the trabecula, increased density in the pedicles and lamina concerning for underlying processes such as Paget's disease. Other causes for sclerosis including prior infection or metastatic lesions could have this appearance. 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 2. Compression deformities at the T12, L1, L2 and L3 vertebral bodies as described above. These are likely chronic. Thoracic Spine CT 04/02/18 19:04 CONCLUSION: 1. Mild superior endplate compression fracture of T12. 2. Severe central wedge-shaped compression deformity of L1. 3. Mild compression deformity of L3 superior endplate. 4. These compression fractures are of unknown chronicity given lack of prior exams. If patient has pain on palpation of the spinous processes at these levels , consider MRI examination to evaluate for bone marrow edema and determine if patient may benefit from cement augmentation. 5. No significant bony central canal or neural foraminal compromise. 6. Coronary artery calcifications. 7. Mild diffuse patchy groundglass opacities in the visualized portions of the lungs which may reflect mild pulmonary edema or diffuse volume loss. 8. Mild to moderate hiatal hernia. Venous Doppler Study 04/02/18 19:05 CONCLUSION: No DVT. Chest X-Ray 04/02/18 22:24 CONCLUSION: Underinflated examination with mild subsegmental atelectasis at the lung bases. Otherwise, no acute cardiopulmonary abnormality is identified. Assessment and Plan - Plan 82-year-old female with a past medical history significant for atrial fibrillation anticoagulated on Eliquis, hypertension and hyperlipidemia admitted for acute L4 vertebral fracture: Multiple vertebral fractures Suspect new compression L4 Acute back pain CT of the lumbar and thoracic spine significant for compression deformities at T12, L1, L2 and L3 vertebral bodies that are likely chronic. There is a horizontal lucency seen throughout the L4 vertebral body concerning for acute fracturing. MRI of the lumbar/thoracic spine pending Neurosurgery consulted, appreciate assistance Physical therapy Continue on Vitamin D and Calcium obtain Vitamin D level Atrial fibrillation, rate controlled Holding home Eliquis until cleared by neurosurgery Continue on Metoprolol monitor HR DAVIE, likely due to dehydration UA neg Cr 1.14, no baseline labs for comparison Hold Lasix avoid nephrotoxic agents monitor kidney function Hyperglycemia obtain HgbA1c Hypertension Continue on Vasotec and Metoprolol Continue to monitor BP and adjust treatment accordingly DVT prophylaxis Holding pharmacologic anticoagulation for possible intervention Discussed Condition With: patient
[2018-04-03] MEDS: Morphine Inj 4 MG/ML Vial IV.PUSH PRN (11:05)
--- NOTE | 2018-04-03 12:25 | MR ---
EXAM DATE: 04/03/2018 10:33 AM EDT AGE/SEX: 82 years / Female INDICATIONS: Fracture. CLINICAL DATA: This is the patient's subsequent encounter. Patient reports that signs and symptoms h ave been present for 2 days and indicates a pain score of 7/10. MEDICAL/SURGICAL HISTORY: Hypertension. . Breast tissue removed. COMPARISON: [facility] – [place] LUMBAR [place] W/O CONTRAST, 04/02/2018. . TECHNIQUE: Multiplanar, multisequence MRI of the lumbar spine was performed without contrast. Patie nt was scanned in a sitting position; neutral, flexion, and extension scans were performed in the sa gittal plane. FINDINGS: Sagittal T1, T2 and inversion recovery images show extensive, chronic appearing fractures from T12 th rough L3 with marked loss of disc height from L1 through L3. There is a vertebral plana configuration of L4 with some central bony edema characteristic of an acute or subacute injury. In addition, bony edema is seen at the lumbosacral junction and I believe there is a fracture line through the left trinity e of the S1 sacral vertebral body. In addition, bony edema is seen in the articulating facets bilater ally at L3-4 and L5-S1. The L3-4 level may be due to chronic hypertrophy but I'm concerned there may be acute or subacute fractures through the articulating facets at the lumbosacral junction. T12-L1: Chronic compression fracture through the superior plate of L1 with a mild retropulsed fragme nt and some facet hypertrophy. Spinal canal and neural foramina are adequate L1-L2: Chronic compression fracture through L2 and L3 with some facet hypertrophy and mild encroach ment on the spinal canal. Spinal canal and neural foramina are adequate L2-L3: Compression fractures of L2 and L3 with some facet hypertrophy and some encroachment on the spinal canal. Spinal canal and neural foramina are adequate. L3-L4: Despite marked facet hypertrophy, the spinal canal and neural foramina are adequate L4-L5: Facet hypertrophy and mild, diffuse disc bulge. Spinal canal and neural foramina are adequat e L5-S1: The thecal sac has a normal diameter. No evidence of disc bulge or protrusion. The neural foramina are patent bilaterally. CONCLUSION: 1. Extensive compression fractures throughout the lumbar spine with chronic appearing injuries from T12 through L3. 2. Vertebral plana of L4 with central bony edema characteristic of an acute or subacute injury. 3. Bony edema in the articulating facets at L4 bilaterally. This may be chronic as there is signific ant facet hypertrophy bilaterally. 4. I believe there is also an acute or subacute fracture through the S1 vertebral body superiorly wi th possible acute or subacute fractures through the articulating facets at the lumbosacral junction. 5. Despite the extensive compression fractures of varying ages, the spinal canal and neural foramina appear to be adequate throughout with no nerve root compromise. Electronically signed by: Tree Kolb MD 04/03/2018 12:24 PM EDT
[2018-04-03] MEDS: Senna/Docusate Sodium 8.6/50 MG Tablet PO SCH ×2 (12:50→21:47)
[2018-04-03] MEDS: Calcium/Vitamin D 250/125 MG Tablet PO SCH (12:50)
--- NOTE | 2018-04-03 12:55 | MR ---
EXAM DATE: 04/03/2018 10:33 AM EDT AGE/SEX: 82 years / Female INDICATIONS: Fracture. CLINICAL DATA: This is the patient's subsequent encounter. Patient reports that signs and symptoms h ave been present for 2 days and indicates a pain score of 6/10. MEDICAL/SURGICAL HISTORY: Hypertension. . Breast tissue removed. [place] [facility] [place] 04/02/2018. . TECHNIQUE: Multiplanar, multisequence MRI of the thoracic spine was performed. FINDINGS: VERTEBRAE: Moderate chronic compression deformity of T12 superior endplate. Multiple lumbar compress ion fractures described in the lumbar MRI report. Remaining thoracic vertebral body heights are intac t. ALIGNMENT: Slight increased thoracic kyphosis. Sagittal alignment is otherwise maintained. CORD: Normal position and configuration. T1-T2: Normal. T2-T3: The thecal sac has a normal diameter. No evidence of disc bulge or protrusion. T3-T4: The thecal sac has a normal diameter. No evidence of disc bulge or protrusion. T4-T5: The thecal sac has a normal diameter. No evidence of disc bulge or protrusion. T5-T6: The thecal sac has a normal diameter. No evidence of disc bulge or protrusion. T6-T7: The thecal sac has a normal diameter. No evidence of disc bulge or protrusion. T7-T8: The thecal sac has a normal diameter. No evidence of disc bulge or protrusion. T8-T9: The thecal sac has a normal diameter. No evidence of disc bulge or protrusion. T9-T10: The thecal sac has a normal diameter. No evidence of disc bulge or protrusion. T10-T11: The thecal sac has a normal diameter. No evidence of disc bulge or protrusion. T11-T12: Posterior central disc protrusion with marginal osteophytes bilaterally. Effacement anterio r thecal sac with central canal narrowing to 10 mm. No significant neural foraminal stenosis. T12-L1: Central posterior disc protrusion with marginal osteophytes. Effacement anterior thecal sac with Central canal narrowing to 10 mm. Neural foramina are patent bilaterally. CONCLUSION: 1. Chronic T12 compression fracture. 2. 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 3. No significant neural foraminal narrowing. Electronically signed by: Tayo Mendez MD 04/03/2018 12:53 PM EDT
[2018-04-03 13:07] LABS: Hemoglobin A1c 5.9 % (4.3-6.0)
[2018-04-03] MEDS: Sod Chloride 0.9% Inj 1,000 ML IV.CONT SCH (14:02)
--- NOTE | 2018-04-03 16:19 | P.CONNS ---
History of Present Illness Service: Neurosurgery Consult date: 04/03/18 Requesting Physician: Mauro Martell Reason for Consult: Lumbar compression fractures Primary Care Provider: PROVIDER NON STAFF History of Present Illness: 82-year-old female admitted for low back pain with radiation to bilateral hips and times of the legs without any numbness or weakness or incontinence. Workup included CT and MRI scan of the thoracic and lumbar spine with multiple fractures which are mostly chronic except for an L4 acute moderate which he body compression fracture and possible superior endplate S1 area fracture. Some of these fractures in the upper lumbar spine have a slight retropulsion but no significant spinal stenosis in the thoracic or lumbar spine noted. Review of Systems Constitutional: Denies anorexia, Denies body ache(s), Denies chills, Denies daytime sleepiness, Denies excessive sweating, Denies fatigue, Denies fever(s), Denies headache(s), Denies increased appetite, Denies lack of energy, Denies malaise, Denies night sweats, Denies weakness, Denies weight gain, Denies weight loss, Denies other Eyes: Denies blind spots, Denies blurry vision, Denies bulging eyes, Denies change in vision, Denies double vision, Denies discharge, Denies dry eyes, Denies floaters, Denies irritation, Denies itchy eyes, Denies loss of vision, Denies pain, Denies requires corrective lenses, Denies sensitivity to light, Denies other Ears, Nose, Mouth, and Throat: Denies abnormal hearing, Denies bleeding gums, Denies bad breath, Denies change in voice, Denies dental pain, Denies difficulty swallowing, Denies dizziness, Denies dry mouth, Denies ear discharge , Denies ear pain, Denies facial pain, Denies headache(s), Denies hearing loss, Denies hoarseness, Denies lip swelling, Denies nosebleed, Denies mouth lesions, Denies mouth pain, Denies nasal congestion, Denies nasal discharge, Denies nasal obstruction, Denies nasal trauma, Denies neck lump, Denies neck pain, Denies nose pain, Denies pain with swallowing, Denies poor balance, Denies post nasal drip, Denies ringing in the ears, Denies sinus pain, Denies sinus pressure , Denies sore throat, Denies throat swelling, Denies tongue swelling, Denies other Cardiovascular: Reports irregular heart rhythm, Reports shortness of breath, Reports shortness of breath with activity, Denies chest pain, Denies chest pain at rest, Denies chest pain with activity, Denies excessive sweating, Denies fainting, Denies fast heart rate, Denies foot swelling, Denies generalized swelling, Denies leg pain with activity, Denies leg sores, Denies leg swelling, Denies lightheadedness, Denies radiating jaw, neck or arm pain, Denies rapid, pounding, or irregular heartbeat, Denies shortness of breath when lying down, Denies shortness of breath causing sudden awakening, Denies slow heart rate, Denies other Respiratory: Reports shortness of breath, Denies change in phlegm color, Denies chest congestion, Denies cough, Denies coughing up blood, Denies excessive phlegm production, Denies pain on inspiration, Denies pain with cough, Denies shortness of breath with activity, Denies snoring, Denies stridor, Denies wheezing, Denies other Gastrointestinal: Denies abdominal pain, Denies belching, Denies black, tarry stools, Denies bloating, Denies bright, red blood in stools, Denies change in bowel habits, Denies constant urge to pass stool, Denies change in stools, Denies coffee ground vomit, Denies constipation, Denies cramping, Denies difficulty swallowing, Denies excessive passing of gas, Denies feeling full early, Denies heartburn, Denies incontinent of stools, Denies loose stools, Denies nausea, Denies pain with swallowing, Denies vomiting, Denies vomiting blood, Denies other Genitourinary: Denies abnormal periods, Denies abnormal vaginal bleeding, Denies absent period, Denies bleeding between periods, Denies blood in urine, Denies difficulty starting urination, Denies difficulty urinating, Denies dribbling after urination, Denies frequent nighttime urination, Denies genital itching, Denies genital lesions, Denies heavy periods, Denies hot flashes, Denies light periods, Denies nipple discharge, Denies painful intercourse, Denies painful periods, Denies painful urination, Denies pelvic pain, Denies prolapse symptoms, Denies sexual problems, Denies side pain, Denies urinary incontinence, Denies urinary urgency, Denies vaginal discharge, Denies vaginal dryness, Denies vaginal odor, Denies vaginal itching, Denies other Musculoskeletal: Reports abnormal walking, Reports back pain, Reports stiffness , Denies body aches, Denies decreased muscle mass, Denies deformity, Denies joint pain, Denies joint swelling, Denies limited joint movement, Denies loss of height, Denies muscle cramps, Denies muscle weakness, Denies neck pain, Denies numbness, Denies radiating pain into limb, Denies tingling, Denies other Skin/Breast: Denies acne, Denies bleeding lesions, Denies boil, Denies breast swelling, Denies breast skin changes, Denies breast pain, Denies breast lump, Denies change in breast shape, Denies change in hair, Denies change in skin color, Denies changing lesions, Denies dry skin, Denies excessive hair growth, Denies hair loss, Denies itching, Denies lesions, Denies nail changes, Denies new lesions, Denies nipple discharge, Denies non-healing lesions, Denies redness , Denies sensitivity to light, Denies rash, Denies skin pain, Denies skin ulcer , Denies sores, Denies stretch garg, Denies unusual bruising, Denies wounds, Denies yellowing of the skin, Denies other Neurologic: Denies abnormal hearing, Denies abnormal movements, Denies abnormal speech, Denies abnormal walking, Denies behavioral changes, Denies burning sensations, Denies confusion, Denies dizziness, Denies fainting, Denies frequent falls, Denies headache(s), Denies lack of coordination, Denies localized weakness, Denies loss of vision, Denies memory loss, Denies numbness, Denies other visual disturbances, Denies radiating pain, Denies restless legs, Denies convulsions, Denies seizure-like activity, Denies sensory deficit, Denies tingling, Denies tingling/numbness/burning sensations, Denies tremor(s), Denies unsteadiness, Denies weakness, Denies other Psychiatric: Denies abnormal sleep pattern, Denies anxiety, Denies behavioral changes, Denies change in appetite, Denies change in sex drive, Denies confusion , Denies depression, Denies difficulty concentrating, Denies hearing things others do not hear, Denies hopelessness, Denies irritability, Denies lack of enjoyment, Denies memory loss, Denies mood swings, Denies panic attacks, Denies paranoia, Denies seeing things others do not see, Denies sensing things others do not sense, Denies tactile hallucinations, Denies thoughts of hurting/killing others, Denies thoughts of hurting/killing yourself, Denies other Endocrine: Denies cold intolerance, Denies excessive sweating, Denies flushing, Denies heat intolerance, Denies increased hunger, Denies increased thirst, Denies increased urination, Denies rapid, pounding, or irregular heartbeat, Denies other Hematologic/Lymphatic: Denies easy bleeding, Denies easy bruising, Denies enlarged lymph nodes, Denies other Allergic/Immunologic: Denies GI upset with certain foods, Denies hives, Denies itchy eyes, Denies lip swelling, Denies seasonal runny nose, Denies throat swelling, Denies tongue swelling, Denies wheezing, Denies other PMFSH - History History Provided By: Patient - Medical History Medical History: Medical History (Last Reviewed 04/03/18 @ 16:16 by Asaf Egan MD) A-fib HTN (hypertension) Hyperlipidemia Lumbar vertebral fracture - Surgical History Surgical History: Surgical History (Last Reviewed 04/03/18 @ 16:16 by Asaf Egan MD) History of lumpectomy - Family History Family History: Family History (Last Reviewed 04/03/18 @ 16:16 by Asaf Egan MD) Other Hypertension - Tobacco History Second Hand Smoke Exposure: No Smoking Status: Never smoker - Alcohol History How Often Do You Have a Drink Containing Alcohol: Never - Substance Use History Substance History: No History of Abuse - Travel History Recent Travel in the [facility] Within the Last 8 Weeks: No Recent Travel Out of the Country Within the Last 8 Weeks: No - Immunization History Tetanus Immunization: Unsure Hx Influenza Vaccine This Season: Yes Medications and Allergies Active Medications: Active Medications Acetaminophen (Tylenol) 650 mg PO Q4H PRN PRN Reason: Temp > 100.4 Al Hydroxide/Mg Hydroxide (Milk Of Magnesia Liq) 30 ml PO Q12H PRN PRN Reason: Mild Constipation Bisacodyl (Dulcolax Supp) 10 mg RECTAL DAILY PRN PRN Reason: SEVERE CONSITIPATION Calcium/Vitamin D (Oscal With D 250/125 Mg) 2 tab PO DAILY [facility] Last Admin: 04/03/18 12:50 Dose: Not Given Enalapril Maleate (Vasotec) 5 mg PO DAILY [facility] Last Admin: 04/03/18 08:16 Dose: 5 mg Furosemide (Lasix) 40 mg PO DAILY [facility] Last Admin: 04/03/18 08:17 Dose: 40 mg Gabapentin (Neurontin) 100 mg PO TID [facility] Last Admin: 04/03/18 14:02 Dose: 100 mg Sodium Chloride (Ns Inj) 1,000 mls @ 70 mls/hr IV.CONT .[id number] [facility] Last Admin: 04/03/18 14:02 Dose: 70 mls/hr Lactulose (Lactulose Liq) 30 ml PO DAILY PRN PRN Reason: SEVERE CONSITIPATION Metoprolol Succinate (Toprol Xl) 100 mg PO BID [facility] Last Admin: 04/03/18 08:17 Dose: 100 mg Morphine Sulfate (Morphine Inj) 4 mg IV.PUSH Q4H PRN PRN Reason: pain 6-10 Last Admin: 04/03/18 11:05 Dose: 4 mg Ondansetron HCl (Zofran Inj) 4 mg IV.PUSH Q6H PRN PRN Reason: NAUSEA OR VOMITING Potassium Chloride (Kcl) 10 meq PO DAILY [facility] Last Admin: 04/03/18 12:50 Dose: Not Given Senna/Docusate Sodium (Eri-Colace) 1 tab PO BID [facility] Last Admin: 04/03/18 12:50 Dose: Not Given Sennosides (Senokot) 17.2 mg PO Q12H PRN PRN Reason: Moderate Constipation Vitamin D (Vitamin D3) 1,000 unit PO DAILY [facility] Last Admin: 04/03/18 12:50 Dose: Not Given Allergies Allergy/AdvReac Type Severity Reaction Status Date / Time No Known Allergies Allergy Verified 04/02/18 18:50 Home Medications Medication Instructions Recorded Confirmed Type apixaban [Eliquis] 2.5 mg PO BID 04/02/18 04/02/18 History calcium carbonate-vitamin D3 1 tab PO DAILY 04/02/18 04/02/18 History [Calcium 600 + D(3)] cholecalciferol (vitamin D3) 1,000 unit PO DAILY 04/02/18 04/02/18 History [Vitamin D3] enalapril maleate 5 mg PO DAILY 04/02/18 04/02/18 History furosemide 40 mg PO DAILY 04/02/18 04/02/18 History gabapentin 100 mg PO TID 04/02/18 04/02/18 History metoprolol succinate 100 mg PO BID 04/02/18 04/02/18 History potassium chloride [Klor-Con M10] 10 meq PO DAILY 04/02/18 04/02/18 History Exam Vital signs: Vital Signs 04/02/18 18:42 04/02/18 19:59 04/02/18 20:00 Temperature 98.6 F Pulse Rate 77 69 Respiratory Rate 24 24 Blood Pressure 150/70 H 159/70 H Pulse Oximetry 95 94 L 94 L 04/03/18 00:00 04/03/18 00:28 04/03/18 04:00 Temperature 97.4 F L 98.0 F Pulse Rate 72 51 L 65 Respiratory Rate 18 16 16 Blood Pressure 153/74 H 151/64 H 127/60 Pulse Oximetry 94 L 92 L 95 04/03/18 08:00 04/03/18 09:41 04/03/18 11:07 Temperature 97.2 F L Pulse Rate 62 Respiratory Rate 17 18 Blood Pressure 139/89 Pulse Oximetry 94 L 95 Intake & Output 04/02/18 04/03/18 04/03/18 18:59 06:59 18:59 Intake Total 1000 / 1000 Balance 1000 / 1000 Weight 78.471 kg 78.471 kg Intake: IV 1000 / 1000 NS Inj 1,000 ML @ 70 mls/hr IV. 1000 / 1000 CONT .[id number] [facility] Rx#:[id number] Other: # Voids 4 Date of Last Bowel Movement 04/01/18 04/02/18 Weight On Admission 78.471 kg - Constitutional no acute distress - Routine HEENT Exam Head: Present: normocephalic, atraumatic Eye: Present: EOMI, PERRL ENT: Present: mucous membranes moist, oropharynx clear, nares patent, external ear normal - Routine Neck Exam Present: supple, full ROM - Routine Respiratory Exam Present: CTA bilaterally (She is on nasal cannula oxygen) - Routine Cardiovascular Exam Present: irregular rhythm - Routine Abdominal Exam Present: soft, normoactive bowel sounds - Routine Extremities Exam Present: full ROM - Routine Skin Exam Present: intact - Routine Neurological Exam Present: oriented X3, CN II-XII intact, plantar reflex, moving all extremities, normal speech Results - Laboratory Findings CBC and BMP: 04/03/18 05:02 04/03/18 05:02 Abnormal lab findings: Abnormal Labs 04/02/18 04/02/18 04/02/18 19:36 19:36 19:36 Plt Count Neut % (Auto) Sargent % (Auto) Lymph # (Auto) PT 11.8 H Carbon Dioxide BUN Creatinine Estimated GFR Random Glucose Calcium Alkaline Phosphatase Troponin I B-Natriuretic Peptide 166 H Albumin Urine Occult Blood Small H Urine Bacteria Rare H Urine Mucus Few H 04/02/18 04/02/18 04/03/18 19:52 19:52 05:02 Plt Count 140 L Neut % (Auto) 83.6 H Sargent % (Auto) 9.0 H Lymph # (Auto) 0.7 L PT Carbon Dioxide BUN 23 H Creatinine Estimated GFR 57 L Random Glucose Calcium 8.1 L Alkaline Phosphatase 128 H Troponin I Less than 0.02 L B-Natriuretic Peptide Albumin 2.9 L Urine Occult Blood Urine Bacteria Urine Mucus 04/03/18 05:02 Plt Count Neut % (Auto) Sargent % (Auto) Lymph # (Auto) PT Carbon Dioxide 33.3 H BUN 29 H Creatinine 1.14 H Estimated GFR 46 L Random Glucose 142 H Calcium Alkaline Phosphatase Troponin I B-Natriuretic Peptide Albumin Urine Occult Blood Urine Bacteria Urine Mucus - Diagnostic Findings Additional findings: Lumbar Spine CT 04/02/18 19:04 CONCLUSION: 1. Horizontal lucency seen throughout the L4 vertebral body concerning for acute fracturing through the L4 vertebral body. There is thickening of the trabecula, increased density in the pedicles and lamina concerning for underlying processes such as Paget's disease. Other causes for sclerosis including prior infection or metastatic lesions could have this appearance. 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 2. Compression deformities at the T12, L1, L2 and L3 vertebral bodies as described above. These are likely chronic. Thoracic Spine CT 04/02/18 19:04 CONCLUSION: 1. Mild superior endplate compression fracture of T12. 2. Severe central wedge-shaped compression deformity of L1. 3. Mild compression deformity of L3 superior endplate. 4. These compression fractures are of unknown chronicity given lack of prior exams. If patient has pain on palpation of the spinous processes at these levels , consider MRI examination to evaluate for bone marrow edema and determine if patient may benefit from cement augmentation. 5. No significant bony central canal or neural foraminal compromise. 6. Coronary artery calcifications. 7. Mild diffuse patchy groundglass opacities in the visualized portions of the lungs which may reflect mild pulmonary edema or diffuse volume loss. 8. Mild to moderate hiatal hernia. Venous Doppler Study 04/02/18 19:05 CONCLUSION: No DVT. Chest X-Ray 04/02/18 22:24 CONCLUSION: Underinflated examination with mild subsegmental atelectasis at the lung bases. Otherwise, no acute cardiopulmonary abnormality is identified. Lumbar Spine MRI 04/03/18 00:00 CONCLUSION: 1. Extensive compression fractures throughout the lumbar spine with chronic appearing injuries from T12 through L3. 2. Vertebral plana of L4 with central bony edema characteristic of an acute or subacute injury. 3. Bony edema in the articulating facets at L4 bilaterally. This may be chronic as there is significant facet hypertrophy bilaterally. 4. I believe there is also an acute or subacute fracture through the S1 vertebral body superiorly with possible acute or subacute fractures through the articulating facets at the lumbosacral junction. 5. Despite the extensive compression fractures of varying ages, the spinal canal and neural foramina appear to be adequate throughout with no nerve root compromise. Thoracic Spine MRI 04/03/18 00:00 CONCLUSION: 1. Chronic T12 compression fracture. 2. 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 3. No significant neural foraminal narrowing. Assessment and Plan - Assessment (1) Closed L4 vertebral fracture Code(s): S32.049A - Unspecified fracture of fourth lumbar vertebra, initial encounter for closed fracture Status: Acute - Plan 82-year-old lady with a history of chronic thoracic and lumbar spine fractures and now presents with an acute L4 vertebrae moderate compression fracture with S1 fracture. Recommend lumbar corset or TLSO brace when out of bed for pain control and fracture healing. Rehab placement. (1) Closed L4 vertebral fracture Qualifiers: Encounter type: initial encounter Fracture morphology: wedge compression Qualified Code(s): S32.040A - Wedge compression fracture of fourth lumbar vertebra, initial encounter for closed fracture
[2018-04-03 17:50] LABS: INR 1.1 Ratio; Prothrombin Time 11.6 sec (9.8-11.6)
[2018-04-04] MEDS: Sod Chloride 0.9% Inj 1,000 ML IV.CONT SCH (04:54)
[2018-04-04] MEDS: Morphine Inj 4 MG/ML Vial IV.PUSH PRN ×2 (04:54→11:19)
[2018-04-04 06:38] LABS: INR 1.1 Ratio; Prothrombin Time 10.7 sec (9.8-11.6)
[2018-04-04 06:57] LABS: Calcium 7.5 mg/dL (8.5-10.1); Potassium 4.5 meq/L (3.5-5.1)
[2018-04-04] MEDS: Calcium/Vitamin D 250/125 MG Tablet PO SCH (09:08)
[2018-04-04] MEDS: Senna/Docusate Sodium 8.6/50 MG Tablet PO SCH ×2 (09:08→20:16)
[2018-04-04] MEDS: Gabapentin 100 MG Capsule PO SCH ×3 (09:08→17:04)
[2018-04-04] MEDS ORDERED: Naloxone Inj 0.4 MG/ML Vial IV.PUSH PRN (15:31)
--- NOTE | 2018-04-04 15:33 | P.PNIM ---
Subjective Interval history: Patient reports still significant pain. Open to surgical procedure if needed. Working with physical therapy today. Physical Exam Vital signs: Vital Signs 04/03/18 16:00 04/03/18 20:00 04/04/18 00:00 Temperature 97.8 F 98.2 F 97.9 F Pulse Rate 69 71 67 Respiratory Rate 18 18 17 Blood Pressure 97/51 L 105/53 L 100/54 L Pulse Oximetry 94 L 94 L 95 04/04/18 04:00 04/04/18 08:00 04/04/18 10:51 Temperature 97.4 F L 97.4 F L Pulse Rate 60 58 L Respiratory Rate 17 18 Blood Pressure 105/55 L 94/53 L Pulse Oximetry 96 95 93 L 04/04/18 11:21 04/04/18 12:00 Temperature 98.2 F Pulse Rate 59 L Respiratory Rate 16 18 Blood Pressure 98/46 L Pulse Oximetry 98 Intake & Output 04/03/18 04/04/18 04/04/18 18:59 06:59 18:59 Intake Total 1720 / 1720 1000 / 1000 Balance 1720 / 1720 1000 / 1000 Weight 78.2 kg Intake: IV 1000 / 1000 1000 / 1000 NS Inj 1,000 ML @ 42 mls/hr IV. 1000 / 1000 1000 / 1000 CONT .[id number] [facility] Rx#:[id number] Oral 720 / 720 Other: # Voids 3 2 # Incontinent Voids 2 Date of Last Bowel Movement 04/02/18 04/02/18 04/02/18 # Bowel Movements 0 Narrative: GENERAL: This is a well-nourished, well-developed patient, in no apparent distress with TSLO brace on. CARDIOVASCULAR: Regular rate and rhythm RESPIRATORY: Clear to auscultation. Breath sounds equal bilaterally. No wheezes , rales, or rhonchi. MUSCULOSKELETAL: Extremities without clubbing, cyanosis, or edema. NEURO: Alert & Oriented x4 to person, place, time, situation. Moves all ext x4 Results - Labs CBC & Chem 7: 04/03/18 05:02 04/04/18 05:46 Laboratory Results - last 24 hr 04/03/18 04/04/18 04/04/18 16:41 05:46 05:46 PT 11.6 10.7 INR 1.1 1.1 Sodium 147 H Potassium 4.5 Chloride 103 Carbon Dioxide 34.0 H Anion Gap 10 BUN 48 H Creatinine 1.54 H Estimated GFR 32 L Random Glucose 97 Calcium 7.5 L D Microbiology 04/02/18 19:36 Blood - Peripheral Aerobic Blood Culture - Preliminary No growth in 2 days 04/02/18 19:36 Blood - Peripheral Anaerobic Blood Culture - Preliminary No growth in 2 days 04/02/18 19:36 Blood - Peripheral Aerobic Blood Culture - Preliminary No growth in 2 days 04/02/18 19:36 Blood - Peripheral Anaerobic Blood Culture - Preliminary No growth in 2 days Assessment and Plan - Plan 82-year-old female with a past medical history significant for atrial fibrillation anticoagulated on Eliquis, hypertension and hyperlipidemia admitted for acute L4 vertebral fracture: Multiple vertebral fractures Suspect new compression L4 Acute back pain CT of the lumbar and thoracic spine significant for compression deformities at T12, L1, L2 and L3 vertebral bodies that are likely chronic. There is a horizontal lucency seen throughout the L4 vertebral body concerning for acute fracturing. MRI of the lumbar/thoracic spine reviewed Neurosurgery consulted, recommends conservative treatment with pain management and brace Physical therapy Continue on Vitamin D and Calcium Atrial fibrillation, rate controlled Holding home Eliquis until cleared by neurosurgery and determine if the pain will be controlled nonsurgically during the next few days prior to restarting Eliquis. Continue on Metoprolol monitor HR DAVIE superimposed on chronic kidney disease stage III, likely due to dehydration UA neg Worsening creatinine today Hold Lasix Hold Vasotec avoid nephrotoxic agents monitor kidney function IV fluid hydration Hyperglycemia HgbA1c with 5.9 Hypertension, chronic Continue metoprolol but hold Vasotec Continue to monitor BP and adjust treatment accordingly DVT prophylaxis Holding pharmacologic anticoagulation for possible future intervention if needed , BSCD
[2018-04-05] MEDS: Sod Chloride 0.9% Inj 1,000 ML IV.CONT SCH ×2 (04:39→15:15)
[2018-04-05 07:09] LABS: Calcium 7.9 mg/dL (8.5-10.1); Carbon Dioxide 34.5 meq/L (21.0-32.0); Potassium 4.5 meq/L (3.5-5.1)
[2018-04-05] MEDS: Senna/Docusate Sodium 8.6/50 MG Tablet PO SCH ×2 (09:12→21:38)
[2018-04-05] MEDS: Gabapentin 100 MG Capsule PO SCH ×3 (09:12→18:06)
[2018-04-05] MEDS: Calcium/Vitamin D 250/125 MG Tablet PO SCH (09:12)
--- NOTE | 2018-04-05 10:52 | P.PNIM ---
Subjective Interval history: Patient states that she is still having a lot of pain. She would like to pursue a kyphoplasty prior to discharge in the hospital. Physical Exam Vital signs: Vital Signs 04/04/18 10:51 04/04/18 11:21 04/04/18 12:00 Temperature 98.2 F Pulse Rate 59 L Respiratory Rate 16 18 Blood Pressure 98/46 L Pulse Oximetry 93 L 98 04/04/18 16:00 04/04/18 17:34 04/04/18 20:00 Temperature 97.4 F L 97.5 F L Pulse Rate 63 75 Respiratory Rate 18 18 17 Blood Pressure 119/57 L 103/55 L Pulse Oximetry 100 99 04/04/18 20:40 04/05/18 00:00 04/05/18 04:00 Temperature 97.8 F 98.1 F Pulse Rate 81 64 Respiratory Rate 16 17 Blood Pressure 103/51 L 111/56 L Pulse Oximetry 98 98 95 04/05/18 08:00 Temperature 98.1 F Pulse Rate 60 Respiratory Rate 16 Blood Pressure 114/54 L Pulse Oximetry 94 L Intake & Output 04/04/18 04/05/18 04/05/18 18:59 06:59 18:59 Intake Total 1720 / 1720 Balance 1720 / 1720 Weight 87.9 kg Intake: IV 1000 / 1000 NS Inj 1,000 ML @ 80 mls/hr IV. 1000 / 1000 CONT .[id number] [facility] Rx#:[id number] Oral 720 / 720 Other: # Voids 2 # Urine Diapers 1 Date of Last Bowel Movement 04/02/18 04/02/18 Narrative: GENERAL: This is a well-nourished, obese, well-developed patient, in no apparent distress CARDIOVASCULAR: Regular rate and rhythm RESPIRATORY: Clear to auscultation. Breath sounds equal bilaterally. No wheezes , rales, or rhonchi. MUSCULOSKELETAL: Extremities without clubbing, cyanosis, or edema. NEURO: Alert & Oriented x4 to person, place, time, situation. Moves all ext x4 Results - Labs CBC & Chem 7: 04/03/18 05:02 04/05/18 05:42 Laboratory Results - last 24 hr 04/05/18 05:42 Sodium 143 Potassium 4.5 Chloride 105 Carbon Dioxide 34.5 H Anion Gap 4 L BUN 44 H Creatinine 1.07 H Estimated GFR 49 L Random Glucose 87 Calcium 7.9 L Microbiology 04/02/18 19:36 Blood - Peripheral Aerobic Blood Culture - Preliminary No growth in 2 days 04/02/18 19:36 Blood - Peripheral Anaerobic Blood Culture - Preliminary No growth in 2 days 04/02/18 19:36 Blood - Peripheral Aerobic Blood Culture - Preliminary No growth in 2 days 04/02/18 19:36 Blood - Peripheral Anaerobic Blood Culture - Preliminary No growth in 2 days Assessment and Plan - Plan 82-year-old female with a past medical history significant for atrial fibrillation anticoagulated on Eliquis, hypertension and hyperlipidemia admitted for acute L4 vertebral fracture: Multiple vertebral fractures Suspect new compression L4 Acute back pain CT of the lumbar and thoracic spine significant for compression deformities at T12, L1, L2 and L3 vertebral bodies that are likely chronic. There is a horizontal lucency seen throughout the L4 vertebral body concerning for acute fracturing. MRI of the lumbar/thoracic spine reviewed Neurosurgery consulted, recommends conservative treatment with pain management and brace Physical therapy Continue on Vitamin D and Calcium Patient at this time would like to pursue kyphoplasty as patient still has intractable lumbar back pain. Will discuss with neurosurgery. Atrial fibrillation, rate controlled Holding home Eliquis until cleared by neurosurgery and determine if the pain will be controlled nonsurgically during the next few days prior to restarting Eliquis. Due to patient also interested in kyphoplasty will continue to hold Eliquis. Continue on Metoprolol monitor HR DAVIE superimposed on chronic kidney disease stage III, likely due to dehydration UA neg Creatinine improving today Hold Lasix Hold Vasotec avoid nephrotoxic agents monitor kidney function IV fluid hydration Hyperglycemia HgbA1c with 5.9 Hypertension, chronic Continue metoprolol but hold Vasotec Continue to monitor BP and adjust treatment accordingly DVT prophylaxis Holding pharmacologic anticoagulation for possible future intervention if needed , BSCD Discharge Planning: Will need fdc facility placement
[2018-04-06] MEDS: Sod Chloride 0.9% Inj 1,000 ML IV.CONT SCH (05:39)
[2018-04-06] MEDS: Senna/Docusate Sodium 8.6/50 MG Tablet PO SCH ×2 (08:28→20:31)
[2018-04-06] MEDS: Gabapentin 100 MG Capsule PO SCH ×3 (08:28→18:14)
[2018-04-06] MEDS: Calcium/Vitamin D 250/125 MG Tablet PO SCH (08:29)
--- NOTE | 2018-04-06 12:45 | P.PNIM ---
Subjective Interval history: Reports low back pain slightly improved however still painful when getting up from bed and sitting down. Would still like to proceed with procedure prior to discharge. Physical Exam Vital signs: Vital Signs 04/05/18 16:00 04/05/18 20:00 04/05/18 21:45 Temperature 97.5 F L 97.7 F Pulse Rate 75 73 62 Respiratory Rate 16 18 Blood Pressure 130/61 127/62 133/72 Pulse Oximetry 90 L 94 L 04/06/18 00:00 04/06/18 04:00 04/06/18 08:00 Temperature 97.6 F 98.1 F 98.2 F Pulse Rate 60 68 63 Respiratory Rate 18 18 16 Blood Pressure 119/56 L 136/61 172/74 H Pulse Oximetry 94 L 94 L 90 L 04/06/18 08:40 04/06/18 12:00 Temperature 97.5 F L Pulse Rate 63 63 Respiratory Rate 16 Blood Pressure 148/98 H 143/67 H Pulse Oximetry 91 L Intake & Output 04/05/18 04/06/18 04/06/18 18:59 06:59 18:59 Intake Total 960 / 960 Balance 960 / 960 Weight 88.1 kg Intake: Oral 960 / 960 Other: # Voids 3 5 Date of Last Bowel Movement 04/02/18 04/05/18 04/05/18 # Bowel Movements 1 Narrative: GENERAL: This is a well-nourished, obese, well-developed patient, in no apparent distress sitting up in chair CARDIOVASCULAR: Regular rate and rhythm RESPIRATORY: Clear to auscultation. Breath sounds equal bilaterally. No wheezes , rales, or rhonchi. MUSCULOSKELETAL: Extremities without clubbing, cyanosis, or edema. Back brace in place NEURO: Alert & Oriented x4 to person, place, time, situation. Moves all ext x4 Results - Labs CBC & Chem 7: 04/03/18 05:02 04/05/18 05:42 Microbiology 04/02/18 19:36 Blood - Peripheral Aerobic Blood Culture - Preliminary No growth in 4 days 04/02/18 19:36 Blood - Peripheral Anaerobic Blood Culture - Preliminary No growth in 4 days 04/02/18 19:36 Blood - Peripheral Aerobic Blood Culture - Preliminary No growth in 4 days 04/02/18 19:36 Blood - Peripheral Anaerobic Blood Culture - Preliminary No growth in 4 days Assessment and Plan - Plan 82-year-old female with a past medical history significant for atrial fibrillation anticoagulated on Eliquis, hypertension and hyperlipidemia admitted for acute L4 vertebral fracture: Multiple vertebral fractures Suspect new compression L4 Acute back pain CT of the lumbar and thoracic spine significant for compression deformities at T12, L1, L2 and L3 vertebral bodies that are likely chronic. There is a horizontal lucency seen throughout the L4 vertebral body concerning for acute fracturing. MRI of the lumbar/thoracic spine reviewed Neurosurgery consulted, recommends conservative treatment with pain management and brace Physical therapy Continue on Vitamin D and Calcium Patient would like to pursue kyphoplasty as patient still has intractable lumbar back pain. Plan possible kyphoplasty with neurosurgery in a.m. Atrial fibrillation, rate controlled Holding home Eliquis until cleared by neurosurgery Due to patient also interested in pursuing kyphoplasty will continue to hold Eliquis. Continue on Metoprolol monitor HR DAVIE superimposed on chronic kidney disease stage III, likely due to dehydration UA neg Creatinine improving with last creatinine 1.07 Hold Lasix Hold Vasotec avoid nephrotoxic agents monitor kidney function IV fluid hydration Hyperglycemia HgbA1c with 5.9 Hypertension, chronic Continue metoprolol but hold Vasotec Continue to monitor BP and adjust treatment accordingly DVT prophylaxis Holding pharmacologic anticoagulation for possible future intervention if needed , BSCD Discharge Planning: correction facility placement versus home health care
[2018-04-07] MEDS ORDERED: Metoprolol Tartrate 25 MG Tablet PO ONE (01:39)
[2018-04-07] MEDS ORDERED: Chlorhexidine Gluconate 2% 1 Pack (2 Cloths) TOPICAL ONE (01:39)
[2018-04-07] MEDS ORDERED: Sodium Chlor 0.9% Inj 500 ML IV.SIG SCH (02:00)
[2018-04-07] MEDS: Calcium/Vitamin D 250/125 MG Tablet PO SCH (08:05)
[2018-04-07] MEDS: Senna/Docusate Sodium 8.6/50 MG Tablet PO SCH ×2 (08:05→21:23)
[2018-04-07] MEDS: Gabapentin 100 MG Capsule PO SCH ×4 (08:05→21:24)
[2018-04-07] MEDS: Morphine Inj 4 MG/ML Vial IV.PUSH PRN (08:53)
--- NOTE | 2018-04-07 11:44 | P.PN ---
Subjective Interval history: Patient doing well overnight. Patient has been n.p.o. since midnight. Patient reports that she is voiding/stooling well. Patient adamant that she wants surgery for her back pain. Physical Exam Vital signs: Vital Signs 04/06/18 12:00 04/06/18 16:00 04/06/18 20:00 Temperature 97.5 F L 97.8 F 97.8 F Pulse Rate 63 61 62 Respiratory Rate 16 16 18 Blood Pressure 143/67 H 143/64 H 144/73 H Pulse Oximetry 91 L 95 94 L 04/07/18 00:00 04/07/18 04:00 04/07/18 09:16 Temperature 97.7 F 97.5 F L 97.5 F L Pulse Rate 58 L 61 57 L Respiratory Rate 18 18 18 Blood Pressure 165/72 H 165/76 H 135/81 Pulse Oximetry 92 L 94 L 93 L Intake & Output 04/06/18 04/07/18 04/07/18 18:59 06:59 18:59 Intake Total 480 / 480 Output Total 300 / 300 Balance 480 / 480 -300 / -300 Intake: Oral 480 / 480 Output: Urine 300 / 300 Other: # Voids 3 3 2 # Urine Diapers 1 Date of Last Bowel Movement 04/05/18 04/06/18 04/06/18 # Bowel Movements 1 1 Narrative: GENERAL: This is a well-nourished, female, in NAD, sitting up in chair HEENT: Normocephalic, atraumatic, PERRLA, MOM CARDIOVASCULAR: Regular rate and rhythm RESPIRATORY: Clear to auscultation x2. No wheezes, rales, or rhonchi. GI: +BS, nontender, nondistended MUSCULOSKELETAL: Extremities without clubbing, cyanosis, or edema. Back brace in place. NEURO: AAOx4, no focal deficits. Results - Labs CBC & Chem 7: 04/03/18 05:02 04/05/18 05:42 Microbiology 04/02/18 19:36 Blood - Peripheral Aerobic Blood Culture - Final No growth in 5 days 04/02/18 19:36 Blood - Peripheral Anaerobic Blood Culture - Final No growth in 5 days 04/02/18 19:36 Blood - Peripheral Aerobic Blood Culture - Final No growth in 5 days 04/02/18 19:36 Blood - Peripheral Anaerobic Blood Culture - Final No growth in 5 days Assessment and Plan - Assessment (1) Closed L4 vertebral fracture Code(s): S32.049A - Unspecified fracture of fourth lumbar vertebra, initial encounter for closed fracture Status: Acute - Plan 82-year-old F with a PMHx of Atrial Fibrillation anticoagulated on Eliquis, HTN and HLD admitted for acute L4 vertebral fracture managed nonoperatively per neurosurgery recommendations but patient desires kyphoplasty, HD#6 1. Multiple Vertebral Fractures Suspect new compression L4 Acute back pain CT of the lumbar and thoracic spine significant for compression deformities at T12, L1, L2 and L3 vertebral bodies that are likely chronic. There is a horizontal lucency seen throughout the L4 vertebral body concerning for acute fracturing. Neurosurgery consulted, recommended conservative treatment with pain management and brace Patient would like to pursue kyphoplasty as patient still has intractable lumbar back pain, patient is NPO in case of surgical intervention Will discuss timing of surgery with neurosurgery, if not today will resume diet Continue on Vitamin D, Calcium, and Gabapentin 2. Atrial fibrillation, rate controlled Holding home Eliquis until cleared by neurosurgery Continue Metoprolol Monitor HR 3. DAVIE superimposed on chronic kidney disease stage III Likely due to dehydration UA Neg Creatinine 1.07 on 04/05, F/U BMP in AM Holding Lasix and Vasotec unless BP spikes Avoid nephrotoxic agents Monitor kidney function s/p IVF's 4. Hyperglycemia, resolved HgbA1c with 5.9 on admission 5. Hypertension, chronic Stable Continue Metoprolol Holding Vasotec, Lasix, and K Resume if necessary pending BP Continue to monitor BP and adjust treatment accordingly 6. DVT prophylaxis: SCD's, holding Eliquis 7. DISPO: Await neurosurgery recommendations for possible kyphoplasty per patient request Discussed Condition With: Patient, RN, housing case manager (1) Closed L4 vertebral fracture Qualifiers: Encounter type: initial encounter Fracture morphology: wedge compression Qualified Code(s): S32.040A - Wedge compression fracture of fourth lumbar vertebra, initial encounter for closed fracture
--- NOTE | 2018-04-07 13:57 | ECG ---
Date Performed: 04/07/2018 Time Performed: 04:18:24 PTAGE: 83 years EKG: Sinus rhythm Low QRS voltages in precordial leads Borderline ECG NO PREVIOUS TRACING DOCTOR: Navneet Hansen Interpretating Date/Time 04/07/2018 13:56:51
[2018-04-07] MEDS ORDERED: Bupivacaine/Epinephrine PF Inj 0.5% 30 ML Vial ONE (15:21)
[2018-04-07] MEDS ORDERED: Glycopyrrolate Inj 1 MG/5 ML Syringe IV.PUSH ONE (16:01)
[2018-04-07] MEDS ORDERED: Neostigmine Inj 5 MG/5 ML Syringe IV.PUSH ONE (16:01)
--- NOTE | 2018-04-07 17:34 | P.OP ---
- Preoperative Diagnosis (1) Closed compression fracture of L4 lumbar vertebra (2) Compression fracture of L5 lumbar vertebra (3) Sacral fracture, closed Date of procedure: 04/07/18 Procedure: L4, L5 and S1 kyphoplasty Anesthesia: ANUPAMA Surgeon: Asaf Egan MD Estimated blood loss (mL): 5 Operation and Findings: Following administration of a general endotracheal anesthesia patient was placed in the prone position on chest rolls and Darren table and all pressure points adequate padded. IV antibiotics were administered intravenously and the lumbar area posteriorly prepped with a Betadine solution and painted and draped in the usual sterile fashion. Using AP and lateral arthroscopy guidance the stab incision sites were made at the L4, L5, and S1 levels overlying the left pedicles after infiltrating the skin was 0.5% Marcaine. The Jamshidi needles were then passed into the vertebral body into the pedicles at each level sequentially and with the hand-held drill trajectories created. The drills were then removed and then the balloons were passed into the vertebral bodies and dilated to create a cavity and restore vertebral body height. Subsequently the balloons were removed and the cavity packed with the bone cement under AP and lateral fluoroscopy guidance. The guides were then removed and Steri- Strips applied at the puncture wounds along with a sterile dressing. She was then turned in spine position, extubated and taken to the recovery room. There were no intraoperative medications and all sponge and needle count was correct at the end the procedure. Estimated blood loss less than 5 cc.
[2018-04-07] MEDS ORDERED: *morphine SULFATE 4 MG/ML PERIprocedure ONLY ONE (18:01)
[2018-04-07] MEDS ORDERED: fentaNYL Citrate Inj 100 MCG/2 ML Ampul ONE (18:01)
--- NOTE | 2018-04-07 20:18 | XR ---
EXAM DATE: 04/07/2018 12:00 AM EDT AGE/SEX: 83 years / Female INDICATIONS: L4,L5,S1 kyphoplasty. CLINICAL DATA: This is the patient's subsequent encounter. Patient reports that signs and symptoms h ave been present for 4 - 6 days and indicates a pain score of Nonresponsive. MEDICAL/SURGICAL HISTORY: . Hypertension. . Breast tissue removed. COMPARISON: . FINDINGS: There are kyphoplasty changes across 3 contiguous levels in the lower lumbar spine and S1. Alignment within normal limits. CONCLUSION: Kyphoplasty at L4-5-S1 with some residual compression. Electronically signed by: Mark Suarez MD 04/07/2018 8:17 PM EDT
--- NOTE | 2018-04-07 22:28 | P.PN ---
Subjective Interval history: not seen Physical Exam Vital signs: Vital Signs 04/07/18 00:00 04/07/18 04:00 04/07/18 09:16 Temperature 97.7 F 97.5 F L 97.5 F L Pulse Rate 58 L 61 57 L Respiratory Rate 18 18 18 Blood Pressure 165/72 H 165/76 H 135/81 Pulse Oximetry 92 L 94 L 93 L 04/07/18 12:48 04/07/18 18:00 04/07/18 18:08 Temperature 98.2 F 97.5 F L Pulse Rate 56 L 63 66 Respiratory Rate 18 15 14 Blood Pressure 177/77 H 152/72 H 159/77 H Pulse Oximetry 93 L 93 L 04/07/18 18:15 04/07/18 18:40 04/07/18 19:00 Temperature Pulse Rate 62 55 L Respiratory Rate 14 14 14 Blood Pressure 142/66 H 147/71 H Pulse Oximetry 04/07/18 20:00 Temperature 98.7 F Pulse Rate 64 Respiratory Rate 16 Blood Pressure 161/77 H Pulse Oximetry 92 L Intake & Output 04/07/18 04/07/18 04/08/18 06:59 18:59 06:59 Intake Total 480 / 480 700 / 700 Output Total 300 / 300 5 / 5 Balance 480 / 480 -300 / -300 695 / 695 Intake: Oral 480 / 480 Anesthesia Amount 700 / 700 Output: Urine 300 / 300 Estimated Blood Loss 5 / 5 Other: # Voids 3 2 # Urine Diapers 1 Date of Last Bowel Movement 04/06/18 04/06/18 # Bowel Movements 1 Narrative: GENERAL: This is a well-nourished, female, in NAD, sitting up in chair HEENT: Normocephalic, atraumatic, PERRLA, MOM CARDIOVASCULAR: Regular rate and rhythm RESPIRATORY: Clear to auscultation x2. No wheezes, rales, or rhonchi. GI: +BS, nontender, nondistended MUSCULOSKELETAL: Extremities without clubbing, cyanosis, or edema. Back brace in place. NEURO: AAOx4, no focal deficits. Results - Labs CBC & Chem 7: 04/03/18 05:02 04/05/18 05:42 Microbiology 04/02/18 19:36 Blood - Peripheral Aerobic Blood Culture - Final No growth in 5 days 04/02/18 19:36 Blood - Peripheral Anaerobic Blood Culture - Final No growth in 5 days 04/02/18 19:36 Blood - Peripheral Aerobic Blood Culture - Final No growth in 5 days 04/02/18 19:36 Blood - Peripheral Anaerobic Blood Culture - Final No growth in 5 days - Imaging Impressions ITS Impressions Lumbar Spine CT 04/02/18 19:04 CONCLUSION: 1. Horizontal lucency seen throughout the L4 vertebral body concerning for acute fracturing through the L4 vertebral body. There is thickening of the trabecula, increased density in the pedicles and lamina concerning for underlying processes such as Paget's disease. Other causes for sclerosis including prior infection or metastatic lesions could have this appearance. 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 2. Compression deformities at the T12, L1, L2 and L3 vertebral bodies as described above. These are likely chronic. Thoracic Spine CT 04/02/18 19:04 CONCLUSION: 1. Mild superior endplate compression fracture of T12. 2. Severe central wedge-shaped compression deformity of L1. 3. Mild compression deformity of L3 superior endplate. 4. These compression fractures are of unknown chronicity given lack of prior exams. If patient has pain on palpation of the spinous processes at these levels , consider MRI examination to evaluate for bone marrow edema and determine if patient may benefit from cement augmentation. 5. No significant bony central canal or neural foraminal compromise. 6. Coronary artery calcifications. 7. Mild diffuse patchy groundglass opacities in the visualized portions of the lungs which may reflect mild pulmonary edema or diffuse volume loss. 8. Mild to moderate hiatal hernia. Venous Doppler Study 04/02/18 19:05 CONCLUSION: No DVT. Chest X-Ray 04/02/18 22:24 CONCLUSION: Under inflated examination with mild subsegmental atelectasis at the lung bases. Otherwise, no acute cardiopulmonary abnormality is identified. Lumbar Spine MRI 04/03/18 00:00 CONCLUSION: 1. Extensive compression fractures throughout the lumbar spine with chronic appearing injuries from T12 through L3. 2. Vertebral plana of L4 with central bony edema characteristic of an acute or subacute injury. 3. Bony edema in the articulating facets at L4 bilaterally. This may be chronic as there is significant facet hypertrophy bilaterally. 4. I believe there is also an acute or subacute fracture through the S1 vertebral body superiorly with possible acute or subacute fractures through the articulating facets at the lumbosacral junction. 5. Despite the extensive compression fractures of varying ages, the spinal canal and neural foramina appear to be adequate throughout with no nerve root compromise. Thoracic Spine MRI 04/03/18 00:00 CONCLUSION: 1. Chronic T12 compression fracture. 2. 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 3. No significant neural foraminal narrowing. Lumbar Spine X-Ray 04/07/18 00:00 CONCLUSION: Kyphoplasty at L4-5-S1 with some residual compression. - Procedures L4-S1 kyphoplasty Assessment and Plan - Assessment (1) Closed L4 vertebral fracture Code(s): S32.049A - Unspecified fracture of fourth lumbar vertebra, initial encounter for closed fracture Status: Acute - Plan 82-year-old F with a PMHx of Atrial Fibrillation anticoagulated on Eliquis, HTN and HLD admitted for acute L4 vertebral fracture managed nonoperatively per neurosurgery recommendations but patient desires kyphoplasty 1. Multiple Vertebral Fractures Acute back pain, L4-S1 kyphoplasty CT of the lumbar and thoracic spine significant for compression deformities at T12, L1, L2 and L3 vertebral bodies that are likely chronic. There is a horizontal lucency seen throughout the L4 vertebral body concerning for acute fracturing. Continue on Vitamin D, Calcium, and Gabapentin 2. Atrial fibrillation, rate controlled Holding home Eliquis until cleared by neurosurgery Continue Metoprolol Monitor HR 3. DAVIE superimposed on chronic kidney disease stage III Likely due to dehydration UA Neg Creatinine 1.07 on 04/05, F/U BMP in AM Holding Lasix and Vasotec unless BP spikes Avoid nephrotoxic agents Monitor kidney function s/p IVF's 4. Hyperglycemia, resolved HgbA1c with 5.9 on admission 5. Hypertension, chronic Stable Continue Metoprolol Holding Vasotec, Lasix, and K Resume if necessary pending BP Continue to monitor BP and adjust treatment accordingly 6. DVT prophylaxis: SCD's, holding Eliquis 7. DISPO: Await neurosurgery recommendations Discharge Planning: HHC vs rehab (1) Closed L4 vertebral fracture Qualifiers: Encounter type: initial encounter Fracture morphology: wedge compression Qualified Code(s): S32.040A - Wedge compression fracture of fourth lumbar vertebra, initial encounter for closed fracture
[2018-04-08 07:21] LABS: Baso % (Auto) 0.2 % (0.0-2.0); Eos % (Auto) 0.1 % (0.0-4.0); Hematocrit 35.6 % (35.0-46.0); Hemoglobin 11.9 gm/dL (11.6-15.3); Lymph # (Auto) 0.7 th/mm3 (1.0-4.8); Lymph % (Auto) 13.1 % (9.0-44.0); Mean Corpuscular HGB Conc 33.3 % (32.0-36.0); Mean Corpuscular Hemoglobin 29.6 pg (27.0-34.0); Mean Corpuscular Volume 88.7 fL (80.0-100.0); Mean Platelet Volume 8.4 fL (7.0-11.0); Mono # (Auto) 0.2 th/mm3 (0.0-0.9); Mono % (Auto) 4.3 % (0.0-8.0); Neut # (Auto) 4.3 th/mm3 (1.8-7.7); Neut % (Auto) 82.3 % (16.0-70.0); Platelet Count 183 th/mm3 (150-450); Red Blood Count 4.01 mil/mm3 (4.00-5.30); Red Cell Distribution Width 15.2 % (11.6-17.2); White Blood Count 5.3 th/mm3 (4.0-11.0)
[2018-04-08 07:56] LABS: Alanine Aminotransferase 13 U/L (10-53); Albumin 2.9 g/dL (3.4-5.0); Alkaline Phosphatase 125 U/L (45-117); Anion Gap 9 meq/L (5-15); Aspartate Aminotransferase 15 U/L (15-37); Blood Urea Nitrogen 20 mg/dL (7-18); Calcium 8.4 mg/dL (8.5-10.1); Carbon Dioxide 29.3 meq/L (21.0-32.0); Chloride 98 meq/L (98-107); Glomerular Filtration Rate 79 mL/min (>89); Glucose,Random 101 mg/dL (74-106); Potassium 5.6 meq/L (3.5-5.1); Sodium 136 meq/L (136-145); Total Protein 6.2 g/dL (6.4-8.2)
[2018-04-08] MEDS: Gabapentin 100 MG Capsule PO SCH ×3 (10:01→18:05)
[2018-04-08] MEDS: Senna/Docusate Sodium 8.6/50 MG Tablet PO SCH ×2 (10:01→21:07)
[2018-04-08] MEDS: Calcium/Vitamin D 250/125 MG Tablet PO SCH (10:01)
--- NOTE | 2018-04-08 10:10 | P.PNNS ---
Subjective Interval history: Pt states her back pain is feeling better. She has been up and going to the bathroom and sitting up in bed and states she is not having back pain. <Jeremias Gil - Last Filed: 04/08/18 10:06> Physical Exam Vital signs: Vital Signs 04/07/18 12:48 04/07/18 18:00 04/07/18 18:08 Temperature 98.2 F 97.5 F L Pulse Rate 56 L 63 66 Respiratory Rate 18 15 14 Blood Pressure 177/77 H 152/72 H 159/77 H Pulse Oximetry 93 L 93 L 04/07/18 18:15 04/07/18 18:40 04/07/18 19:00 Temperature Pulse Rate 62 55 L Respiratory Rate 14 14 14 Blood Pressure 142/66 H 147/71 H Pulse Oximetry 04/07/18 20:00 04/08/18 00:00 04/08/18 04:00 Temperature 98.7 F 97.3 F L 97.4 F L Pulse Rate 64 71 70 Respiratory Rate 16 16 16 Blood Pressure 161/77 H 181/85 H 144/76 H Pulse Oximetry 92 L 96 94 L 04/08/18 08:00 Temperature 97.4 F L Pulse Rate 58 L Respiratory Rate 16 Blood Pressure 129/60 Pulse Oximetry 90 L Intake & Output 04/07/18 04/08/18 04/08/18 18:59 06:59 18:59 Intake Total 700 / 700 Output Total 300 / 300 5 / 5 Balance -300 / -300 695 / 695 Intake: Anesthesia Amount 700 / 700 Output: Urine 300 / 300 Estimated Blood Loss 5 / 5 Other: # Voids 2 Date of Last Bowel Movement 04/06/18 04/06/18 - Constitutional no acute distress - Routine HEENT Exam Head: Present: normocephalic Eye: Present: PERRL. Absent: conjunctival icterus ENT: Present: oropharynx clear - Routine Respiratory Exam Present: CTA bilaterally. Absent: respiratory distress, rhonchi, wheezes - Routine Cardiovascular Exam Present: RRR, S1, S2. Absent: murmur - Routine Abdominal Exam Present: soft, normoactive bowel sounds. Absent: distended, firm - Routine Skin Exam Absent: cyanosis, erythema - Routine Neurological Exam Present: alert, moving all extremities, normal speech. Absent: sensory deficit , motor deficit - Routine Psychiatric Exam Present: normal affect, cooperative. Absent: anxious, agitated <Jeremias Gil - Last Filed: 04/08/18 10:06> Vital signs: Vital Signs 04/07/18 18:00 04/07/18 18:08 04/07/18 18:15 Temperature 97.5 F L Pulse Rate 63 66 62 Respiratory Rate 15 14 14 Blood Pressure 152/72 H 159/77 H 142/66 H Pulse Oximetry 93 L 04/07/18 18:40 04/07/18 19:00 04/07/18 20:00 Temperature 98.7 F Pulse Rate 55 L 64 Respiratory Rate 14 14 16 Blood Pressure 147/71 H 161/77 H Pulse Oximetry 92 L 04/08/18 00:00 04/08/18 04:00 04/08/18 08:00 Temperature 97.3 F L 97.4 F L 97.4 F L Pulse Rate 71 70 58 L Respiratory Rate 16 16 16 Blood Pressure 181/85 H 144/76 H 129/60 Pulse Oximetry 96 94 L 90 L 04/08/18 12:00 Temperature 98.4 F Pulse Rate 60 Respiratory Rate 16 Blood Pressure 105/55 L Pulse Oximetry 91 L Intake & Output 04/07/18 04/08/18 04/08/18 18:59 06:59 18:59 Intake Total 700 / 700 Output Total 300 / 300 5 / 5 Balance -300 / -300 695 / 695 Intake: Anesthesia Amount 700 / 700 Output: Urine 300 / 300 Estimated Blood Loss 5 / 5 Other: # Voids 2 Date of Last Bowel Movement 04/06/18 04/06/18 04/06/18 <Asaf Egan - Last Filed: 04/08/18 13:01> Assessment and Plan - Assessment (1) Closed L4 vertebral fracture Code(s): S32.049A - Unspecified fracture of fourth lumbar vertebra, initial encounter for closed fracture Status: Acute Qualifiers: Encounter type: initial encounter Fracture morphology: wedge compression Qualified Code(s): S32.040A - Wedge compression fracture of fourth lumbar vertebra, initial encounter for closed fracture (2) Weakness Code(s): R53.1 - Weakness Status: Acute (3) Closed compression fracture of L4 lumbar vertebra Code(s): S32.040A - Wedge compression fracture of fourth lumbar vertebra, initial encounter for closed fracture Status: Acute (4) Compression fracture of L5 lumbar vertebra Code(s): S32.050A - Wedge compression fracture of fifth lumbar vertebra, initial encounter for closed fracture Status: Acute (5) Sacral fracture, closed Code(s): S32.10XA - Unspecified fracture of sacrum, initial encounter for closed fracture Status: Acute - Plan 82-year-old lady with a history of chronic thoracic and lumbar spine fractures and now presents with an acute L4 vertebrae moderate compression fracture with S1 fracture. s/p- L4, L5, S1 kyphoplasty. P: Pt states pain is better. PT Rehab placement. Follow up in 4-6 weeks after rehab. <Jeremias Gil - Last Filed: 04/08/18 10:06> - Assessment (1) Closed L4 vertebral fracture Code(s): S32.049A - Unspecified fracture of fourth lumbar vertebra, initial encounter for closed fracture Status: Acute Qualifiers: Encounter type: initial encounter Fracture morphology: wedge compression Qualified Code(s): S32.040A - Wedge compression fracture of fourth lumbar vertebra, initial encounter for closed fracture - Attending Attestation The exam, history, and the medical decision-making described in the above note were completed with the assistance of the mid-level provider. I reviewed and agree with the findings presented. I attest that I had a [id number] encounter with the patient on the same day, and personally performed and documented my assessment and findings in the medical record. Clear for rehab placement. Resume Emani on 04/10/18. <Asaf Egan - Last Filed: 04/08/18 13:01>
[2018-04-08] MEDS ORDERED: Sodium Polystyrene Sulfonate/Sorbitol Liq 15 GM/60 ML UDC PO ONE (11:20)
--- NOTE | 2018-04-08 12:21 | P.PN ---
Subjective Interval history: Follow-up L4-S1 kyphoplasty. States she still has right sciatica. No incontinence. Eforcse queried Physical Exam Vital signs: Vital Signs 04/07/18 12:48 04/07/18 18:00 04/07/18 18:08 Temperature 98.2 F 97.5 F L Pulse Rate 56 L 63 66 Respiratory Rate 18 15 14 Blood Pressure 177/77 H 152/72 H 159/77 H Pulse Oximetry 93 L 93 L 04/07/18 18:15 04/07/18 18:40 04/07/18 19:00 Temperature Pulse Rate 62 55 L Respiratory Rate 14 14 14 Blood Pressure 142/66 H 147/71 H Pulse Oximetry 04/07/18 20:00 04/08/18 00:00 04/08/18 04:00 Temperature 98.7 F 97.3 F L 97.4 F L Pulse Rate 64 71 70 Respiratory Rate 16 16 16 Blood Pressure 161/77 H 181/85 H 144/76 H Pulse Oximetry 92 L 96 94 L 04/08/18 08:00 Temperature 97.4 F L Pulse Rate 58 L Respiratory Rate 16 Blood Pressure 129/60 Pulse Oximetry 90 L Intake & Output 04/07/18 04/08/18 04/08/18 18:59 06:59 18:59 Intake Total 700 / 700 Output Total 300 / 300 5 / 5 Balance -300 / -300 695 / 695 Intake: Anesthesia Amount 700 / 700 Output: Urine 300 / 300 Estimated Blood Loss 5 / 5 Other: # Voids 2 Date of Last Bowel Movement 04/06/18 04/06/18 04/06/18 Narrative: GENERAL: This is a well-nourished, female, in NAD, sitting up in chair HEENT: Normocephalic, atraumatic, PERRLA, MOM CARDIOVASCULAR: Regular rate and rhythm RESPIRATORY: Clear to auscultation x2. No wheezes, rales, or rhonchi. GI: +BS, nontender, nondistended MUSCULOSKELETAL: Extremities without clubbing, cyanosis, or edema. Back brace in place. NEURO: AAOx4, no focal deficits. Results - Labs CBC & Chem 7: 04/08/18 05:29 04/08/18 05:29 Laboratory Results - last 24 hr 04/08/18 04/08/18 05:29 05:29 WBC 5.3 RBC 4.01 Hgb 11.9 Hct 35.6 MCV 88.7 MCH 29.6 MCHC 33.3 RDW 15.2 Plt Count 183 D MPV 8.4 Neut % (Auto) 82.3 H Lymph % (Auto) 13.1 [place] % (Auto) 4.3 Eos % (Auto) 0.1 Baso % (Auto) 0.2 Neut # (Auto) 4.3 Lymph # (Auto) 0.7 L [place] # (Auto) 0.2 Eos # (Auto) 0.0 Baso # (Auto) 0.0 WBC Differential . Differential Comment Auto diff final Sodium 136 Potassium 5.6 H Chloride 98 Carbon Dioxide 29.3 Anion Gap 9 BUN 20 H Creatinine 0.71 Estimated GFR 79 L Random Glucose 101 Calcium 8.4 L Total Bilirubin 0.5 AST 15 ALT 13 Alkaline Phosphatase 125 H Total Protein 6.2 L Albumin 2.9 L Microbiology 04/02/18 19:36 Blood - Peripheral Aerobic Blood Culture - Final No growth in 5 days 04/02/18 19:36 Blood - Peripheral Anaerobic Blood Culture - Final No growth in 5 days 04/02/18 19:36 Blood - Peripheral Aerobic Blood Culture - Final No growth in 5 days 04/02/18 19:36 Blood - Peripheral Anaerobic Blood Culture - Final No growth in 5 days - Imaging Impressions Lumbar Spine X-Ray 04/07/18 00:00 CONCLUSION: Kyphoplasty at L4-5-S1 with some residual compression. - Procedures L4-S1 kyphoplasty Assessment and Plan - Assessment (1) Closed L4 vertebral fracture Code(s): S32.049A - Unspecified fracture of fourth lumbar vertebra, initial encounter for closed fracture Status: Acute - Plan 82-year-old F with a PMHx of Atrial Fibrillation anticoagulated on Eliquis, HTN and HLD admitted for acute L4 vertebral fracture managed nonoperatively per neurosurgery recommendations but patient desires kyphoplasty 1. Multiple Vertebral Fractures Acute back pain s/p L4-S1 kyphoplasty. Stable CT of the lumbar and thoracic spine significant for compression deformities at T12, L1, L2 and L3 vertebral bodies that are likely chronic. There is a horizontal lucency seen throughout the L4 vertebral body concerning for acute fracturing. Continue on Vitamin D, Calcium, and Gabapentin 2. Atrial fibrillation, rate controlled Holding home Eliquis until cleared by neurosurgery. Restart on April 10 Continue Metoprolol Monitor HR 3. DAVIE superimposed on chronic kidney disease stage III with hyperkalemia Acute kidney injury improved. Kayexalate x1 Holding Lasix and Vasotec unless BP spikes Avoid nephrotoxic agents Monitor kidney function repeat BMP in the more s/p IVF's 4. Hyperglycemia, resolved HgbA1c with 5.9 on admission 5. Hypertension, chronic Stable Continue Metoprolol Holding Vasotec, Lasix, and K Resume if necessary pending BP Continue to monitor BP and adjust treatment accordingly 6. DVT prophylaxis: SCD's, holding Eliquis 7. DISPO: Cleared for discharge by neurosurgery Discharge Planning: Rehab pending insurance authorization (1) Closed L4 vertebral fracture Qualifiers: Encounter type: initial encounter Fracture morphology: wedge compression Qualified Code(s): S32.040A - Wedge compression fracture of fourth lumbar vertebra, initial encounter for closed fracture
--- NOTE | 2018-04-08 16:38 | P.DS ---
Date of admission: 04/02/18 22:54 Primary care physician: PROVIDER MATHEW STAFF Anticipated date of discharge: 04/11/18 Brief History from admission: 82-year-old female with a past medical history significant for atrial fibrillation anticoagulated on Eliquis, hypertension and hyperlipidemia presents to the emergency department for evaluation 2 days. The patient also complains of pain in her bilateral hips that radiates down the lateral aspects of her legs to her knees. She denies any traumatic events or falls. In June she had a similar at the where she tried to stand up from sitting and was unable to do so. She was diagnosed with an L4 and L5 vertebral fractures, discharged to rehab which she completed and continued physical therapy at home. The patient denies any bowel or bladder incontinence. No bilateral lower extremity weakness. No chest pain or shortness of breath. No fever/chills. No abdominal pain. No nausea/vomiting/diarrhea. No lateralizing signs/ symptoms. DS: Diagnosis - Discharge Diagnosis (1) Closed L4 vertebral fracture Status: Acute DS: Medications - Discharge Medications Prescriptions: hydrocodone-acetaminophen 1 tab PO Q6H PRN #12 tab PRN Reason: Acute Pain DS: Summary Hospital Course: 82-year-old F with a PMHx of Atrial Fibrillation anticoagulated on Eliquis, HTN and HLD admitted for acute L4 vertebral fracture managed nonoperatively per neurosurgery recommendations but patient desires kyphoplasty 1. Multiple Vertebral Fractures Acute back pain s/p L4-S1 kyphoplasty. Stable CT of the lumbar and thoracic spine significant for compression deformities at T12, L1, L2 and L3 vertebral bodies that are likely chronic. There is a horizontal lucency seen throughout the L4 vertebral body concerning for acute fracturing. Continue on Vitamin D, Calcium, and Gabapentin 2. Atrial fibrillation, rate controlled Restart Eliquis today per neurosurgery Continue Metoprolol Monitor HR 3. DAVIE superimposed on chronic kidney disease stage III with hyperkalemia Improved Holding Lasix and Vasotec unless BP spikes Avoid nephrotoxic agents Monitor kidney function repeat BMP s/p IVF's 4. Hyperglycemia, resolved HgbA1c with 5.9 on admission 5. Hypertension, chronic Stable Continue Metoprolol Holding Vasotec, Lasix, and K Resume if necessary pending BP Continue to monitor BP and adjust treatment accordingly 6. Constipation. Positive bowel movement continue bowel regimen DVT prophylaxis: SCD's, Eliquis - Time Spent with Patient Total time spent providing and/or coordinating discharge services: Greater than 30 minutes - Quality: VTE Deep Vein Thrombosis/Pulmonary Embolism Present on Admission: No Exam Vital signs: Vital Signs 04/07/18 18:00 04/07/18 18:08 04/07/18 18:15 Temperature 97.5 F L Pulse Rate 63 66 62 Respiratory Rate 15 14 14 Blood Pressure 152/72 H 159/77 H 142/66 H Pulse Oximetry 93 L 04/07/18 18:40 04/07/18 19:00 04/07/18 20:00 Temperature 98.7 F Pulse Rate 55 L 64 Respiratory Rate 14 14 16 Blood Pressure 147/71 H 161/77 H Pulse Oximetry 92 L 04/08/18 00:00 04/08/18 04:00 04/08/18 08:00 Temperature 97.3 F L 97.4 F L 97.4 F L Pulse Rate 71 70 58 L Respiratory Rate 16 16 16 Blood Pressure 181/85 H 144/76 H 129/60 Pulse Oximetry 96 94 L 90 L 04/08/18 12:00 Temperature 98.4 F Pulse Rate 60 Respiratory Rate 16 Blood Pressure 105/55 L Pulse Oximetry 91 L Intake & Output 04/07/18 04/08/18 04/08/18 18:59 06:59 18:59 Intake Total 700 / 700 Output Total 300 / 300 5 / 5 Balance -300 / -300 695 / 695 Intake: Anesthesia Amount 700 / 700 Output: Urine 300 / 300 Estimated Blood Loss 5 / 5 Other: # Voids 2 Date of Last Bowel Movement 04/06/18 04/06/18 04/06/18 Narrative: GENERAL: This is a well-nourished, female, in NAD, sitting up in chair HEENT: Normocephalic, atraumatic, PERRLA, MOM CARDIOVASCULAR: Regular rate and rhythm RESPIRATORY: Clear to auscultation x2. No wheezes, rales, or rhonchi. GI: +BS, nontender, nondistended MUSCULOSKELETAL: Extremities without clubbing, cyanosis, or edema. Back brace in place. NEURO: AAOx4, no focal deficits. Results Procedures completed during hospitalization: L4-S1 kyphoplasty Pending studies at discharge: Pending at discharge 04/07/18 07:30 Surgical [PTH] Routine Labs on day of discharge: Labs from last 24 hours 04/08/18 04/08/18 04/03/18 05:29 05:29 14:11 WBC 5.3 RBC 4.01 Hgb 11.9 Hct 35.6 MCV 88.7 MCH 29.6 MCHC 33.3 RDW 15.2 Plt Count 183 D MPV 8.4 Neut % (Auto) 82.3 H Lymph % (Auto) 13.1 [place] % (Auto) 4.3 Eos % (Auto) 0.1 Baso % (Auto) 0.2 Neut # (Auto) 4.3 Lymph # (Auto) 0.7 L [place] # (Auto) 0.2 Eos # (Auto) 0.0 Baso # (Auto) 0.0 WBC Differential . Differential Comment Auto diff final Sodium 136 Potassium 5.6 H Chloride 98 Carbon Dioxide 29.3 Anion Gap 9 BUN 20 H Creatinine 0.71 Estimated GFR 79 L Random Glucose 101 Calcium 8.4 L Total Bilirubin 0.5 AST 15 ALT 13 Alkaline Phosphatase 125 H Total Protein 6.2 L Albumin 2.9 L Vit D 1,25-Dihydroxy 32 - Impressions ITS Impressions Lumbar Spine CT 04/02/18 19:04 CONCLUSION: 1. Horizontal lucency seen throughout the L4 vertebral body concerning for acute fracturing through the L4 vertebral body. There is thickening of the trabecula, increased density in the pedicles and lamina concerning for underlying processes such as Paget's disease. Other causes for sclerosis including prior infection or metastatic lesions could have this appearance. 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 2. Compression deformities at the T12, L1, L2 and L3 vertebral bodies as described above. These are likely chronic. Thoracic Spine CT 04/02/18 19:04 CONCLUSION: 1. Mild superior endplate compression fracture of T12. 2. Severe central wedge-shaped compression deformity of L1. 3. Mild compression deformity of L3 superior endplate. 4. These compression fractures are of unknown chronicity given lack of prior exams. If patient has pain on palpation of the spinous processes at these levels , consider MRI examination to evaluate for bone marrow edema and determine if patient may benefit from cement augmentation. 5. No significant bony central canal or neural foraminal compromise. 6. Coronary artery calcifications. 7. Mild diffuse patchy groundglass opacities in the visualized portions of the lungs which may reflect mild pulmonary edema or diffuse volume loss. 8. Mild to moderate hiatal hernia. Venous Doppler Study 04/02/18 19:05 CONCLUSION: No DVT. Chest X-Ray 04/02/18 22:24 CONCLUSION: Underinflated examination with mild subsegmental atelectasis at the lung bases. Otherwise, no acute cardiopulmonary abnormality is identified. Lumbar Spine MRI 04/03/18 00:00 CONCLUSION: 1. Extensive compression fractures throughout the lumbar spine with chronic appearing injuries from T12 through L3. 2. Vertebral plana of L4 with central bony edema characteristic of an acute or subacute injury. 3. Bony edema in the articulating facets at L4 bilaterally. This may be chronic as there is significant facet hypertrophy bilaterally. 4. I believe there is also an acute or subacute fracture through the S1 vertebral body superiorly with possible acute or subacute fractures through the articulating facets at the lumbosacral junction. 5. Despite the extensive compression fractures of varying ages, the spinal canal and neural foramina appear to be adequate throughout with no nerve root compromise. Thoracic Spine MRI 04/03/18 00:00 CONCLUSION: 1. Chronic T12 compression fracture. 2. 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 3. No significant neural foraminal narrowing. Lumbar Spine X-Ray 04/07/18 00:00 CONCLUSION: Kyphoplasty at L4-5-S1 with some residual compression. Discharge Plan - Discharge Disposition Patient Disposition: Discharge to SNF - Discharge Condition Condition: Stable - Discharge Order Discharge Orders: Discharge Order (Routine); Ordered 04/08/18 Ordered By: Carson Pedraza - Physicians Team Primary Care Provider: NON STAFF,PROVIDER Attending Provider: Carson Pedraza Other Providers: Asaf Egan MD ; [employer] ; [facility]
--- NOTE | 2018-04-09 08:26 | P.PN ---
Subjective Interval history: Follow-up lumbar kyphoplasty. Awaiting insurance authorization for [facility]. No BM but denies nausea and abdominal pain. She is passing gas. Discussed with nursing she is on bowel regimen Physical Exam Vital signs: Vital Signs 04/08/18 12:00 04/08/18 16:00 04/08/18 19:00 Temperature 98.4 F 97.7 F 98.1 F Pulse Rate 60 69 65 Respiratory Rate 16 18 17 Blood Pressure 105/55 L 142/62 H 109/54 L Pulse Oximetry 91 L 93 L 93 L 04/09/18 00:00 04/09/18 04:00 Temperature 98.5 F 98.4 F Pulse Rate 67 64 Respiratory Rate 17 17 Blood Pressure 109/58 L 132/60 Pulse Oximetry 92 L 93 L Intake & Output 04/08/18 04/09/18 04/09/18 18:59 06:59 18:59 Intake Total 480 / 480 710 / 710 Balance 480 / 480 710 / 710 Intake: IV 260 / 260 Oral 480 / 480 450 / 450 Other: # Voids 3 2 Date of Last Bowel Movement 04/06/18 04/06/18 Narrative: GENERAL: This is a well-nourished, female, in NAD, sitting up in chair HEENT: Normocephalic, atraumatic, PERRLA, MOM CARDIOVASCULAR: Regular rate and rhythm RESPIRATORY: Clear to auscultation x2. No wheezes, rales, or rhonchi. GI: +BS, nontender, nondistended MUSCULOSKELETAL: Extremities without clubbing, cyanosis, or edema. Back brace in place. NEURO: AAOx4, no focal deficits. Results - Labs CBC & Chem 7: 04/08/18 05:29 04/09/18 06:35 Laboratory Results - last 24 hr 04/03/18 14:11 Vit D 1,25-Dihydroxy 32 - Procedures L4-S1 kyphoplasty Assessment and Plan - Assessment (1) Closed L4 vertebral fracture Code(s): S32.049A - Unspecified fracture of fourth lumbar vertebra, initial encounter for closed fracture Status: Acute - Plan 82-year-old F with a PMHx of Atrial Fibrillation anticoagulated on Eliquis, HTN and HLD admitted for acute L4 vertebral fracture managed nonoperatively per neurosurgery recommendations but patient desires kyphoplasty 1. Multiple Vertebral Fractures Acute back pain s/p L4-S1 kyphoplasty. Stable CT of the lumbar and thoracic spine significant for compression deformities at T12, L1, L2 and L3 vertebral bodies that are likely chronic. There is a horizontal lucency seen throughout the L4 vertebral body concerning for acute fracturing. Continue on Vitamin D, Calcium, and Gabapentin 2. Atrial fibrillation, rate controlled Holding home Eliquis until cleared by neurosurgery. Restart on April 10 Continue Metoprolol Monitor HR 3. DAVIE superimposed on chronic kidney disease stage III with hyperkalemia Improved Holding Lasix and Vasotec unless BP spikes Avoid nephrotoxic agents Monitor kidney function repeat BMP s/p IVF's 4. Hyperglycemia, resolved HgbA1c with 5.9 on admission 5. Hypertension, chronic Stable Continue Metoprolol Holding Vasotec, Lasix, and K Resume if necessary pending BP Continue to monitor BP and adjust treatment accordingly 6. Constipation. Continue bowel regimen DVT prophylaxis: SCD's, holding Eliquis DISPO: Cleared for discharge by neurosurgery Discharge Planning: Rehab pending insurance authorization (1) Closed L4 vertebral fracture Qualifiers: Encounter type: initial encounter Fracture morphology: wedge compression Qualified Code(s): S32.040A - Wedge compression fracture of fourth lumbar vertebra, initial encounter for closed fracture
[2018-04-09 08:57] LABS: Calcium 7.9 mg/dL (8.5-10.1); Carbon Dioxide 31.9 meq/L (21.0-32.0); Magnesium 2.3 mg/dL (1.5-2.5); Potassium 4.4 meq/L (3.5-5.1)
[2018-04-09] MEDS: Calcium/Vitamin D 250/125 MG Tablet PO SCH (09:25)
[2018-04-09] MEDS: Senna/Docusate Sodium 8.6/50 MG Tablet PO SCH ×2 (09:25→21:42)
[2018-04-09] MEDS: Gabapentin 100 MG Capsule PO SCH ×3 (09:26→17:10)
[2018-04-09] MEDS ORDERED: Bisacodyl 10 MG Supp RECTAL PRN (13:41)
--- NOTE | 2018-04-10 08:53 | P.PN ---
Subjective Interval history: Follow-up constipation. Finally had a bowel movement. Had transient mild dizziness after pain medicine this morning. Physical Exam Vital signs: Vital Signs 04/09/18 12:00 04/09/18 16:00 04/09/18 19:15 Temperature 98.4 F 97.9 F 97.9 F Pulse Rate 57 L 58 L 65 Respiratory Rate 18 18 17 Blood Pressure 99/55 L 114/56 L 108/53 L Pulse Oximetry 95 93 L 94 L 04/09/18 23:37 04/10/18 01:30 04/10/18 08:00 Temperature 98.0 F 97.1 F L Pulse Rate 62 62 Respiratory Rate 18 Blood Pressure 123/59 L 117/68 Pulse Oximetry 92 L 91 L Intake & Output 04/09/18 04/10/18 04/10/18 18:59 06:59 18:59 Intake Total 240 / 240 Balance 240 / 240 Weight 88.1 kg Intake: Oral 240 / 240 Other: # Voids 3 2 Date of Last Bowel Movement 04/06/18 04/09/18 # Bowel Movements 1 1 Narrative: GENERAL: This is a well-nourished, female, in NAD HEENT: Normocephalic, atraumatic, PERRLA, MOM CARDIOVASCULAR: Regular rate and rhythm RESPIRATORY: Clear to auscultation x2. GI: +BS, nontender, nondistended MUSCULOSKELETAL: Extremities without clubbing, cyanosis, or edema. NEURO: AAOx4, no focal deficits. Results - Labs CBC & Chem 7: 04/08/18 05:29 04/09/18 06:35 Laboratory Results - last 24 hr 04/09/18 06:35 Sodium 136 Potassium 4.4 D Chloride 98 Carbon Dioxide 31.9 Anion Gap 6 BUN 29 H Creatinine 0.94 Estimated GFR 57 L Random Glucose 89 Calcium 7.9 L Magnesium 2.3 - Procedures L4-S1 kyphoplasty Assessment and Plan - Assessment (1) Closed L4 vertebral fracture Code(s): S32.049A - Unspecified fracture of fourth lumbar vertebra, initial encounter for closed fracture Status: Acute - Plan 82-year-old F with a PMHx of Atrial Fibrillation anticoagulated on Eliquis, HTN and HLD admitted for acute L4 vertebral fracture managed nonoperatively per neurosurgery recommendations but patient desires kyphoplasty 1. Multiple Vertebral Fractures Acute back pain s/p L4-S1 kyphoplasty. Stable CT of the lumbar and thoracic spine significant for compression deformities at T12, L1, L2 and L3 vertebral bodies that are likely chronic. There is a horizontal lucency seen throughout the L4 vertebral body concerning for acute fracturing. Continue on Vitamin D, Calcium, and Gabapentin 2. Atrial fibrillation, rate controlled Restart Eliquis today per neurosurgery Continue Metoprolol Monitor HR 3. DAVIE superimposed on chronic kidney disease stage III with hyperkalemia Improved Holding Lasix and Vasotec unless BP spikes Avoid nephrotoxic agents Monitor kidney function repeat BMP s/p IVF's 4. Hyperglycemia, resolved HgbA1c 5.9 5. Hypertension, chronic Stable Continue Metoprolol Holding Vasotec, Lasix, and K Resume if necessary pending BP Continue to monitor BP and adjust treatment accordingly 6. Constipation. Positive bowel movement continue bowel regimen DVT prophylaxis: SCD's, Eliquis Discharge Planning: Reynold casey; pending SNF insurance authorization (1) Closed L4 vertebral fracture Qualifiers: Encounter type: initial encounter Fracture morphology: wedge compression Qualified Code(s): S32.040A - Wedge compression fracture of fourth lumbar vertebra, initial encounter for closed fracture
[2018-04-10] MEDS: Senna/Docusate Sodium 8.6/50 MG Tablet PO SCH ×2 (08:55→21:23)
[2018-04-10] MEDS: Calcium/Vitamin D 250/125 MG Tablet PO SCH (08:55)
[2018-04-10] MEDS: Gabapentin 100 MG Capsule PO SCH ×3 (08:55→17:53)
--- NOTE | 2018-04-11 08:35 | P.PN ---
Subjective Interval history: Follow-up lumbar kyphoplasty. Awaiting insurance authorization for SNF Physical Exam Vital signs: Vital Signs 04/10/18 12:00 04/10/18 16:00 04/10/18 20:00 Temperature 97.3 F L 97.9 F 97.9 F Pulse Rate 57 L 55 L 54 L Respiratory Rate 18 17 18 Blood Pressure 130/60 129/62 115/54 L Pulse Oximetry 94 L 95 96 04/11/18 00:00 04/11/18 01:30 Temperature 97.6 F Pulse Rate 57 L Respiratory Rate 18 18 Blood Pressure 142/65 H Pulse Oximetry 96 Intake & Output 04/10/18 04/11/18 04/11/18 18:59 06:59 18:59 Intake Total 850 / 850 240 / 240 Balance 850 / 850 240 / 240 Weight 88.4 kg Intake: Oral 850 / 850 240 / 240 Other: # Voids 5 3 # Incontinent Voids 1 Date of Last Bowel Movement 04/09/18 04/09/18 Narrative: GENERAL: This is a well-nourished, female, in NAD HEENT: Normocephalic, atraumatic, PERRLA, MOM CARDIOVASCULAR: Regular rate and rhythm RESPIRATORY: Clear to auscultation x2. No wheezes, rales, or rhonchi. GI: +BS, nontender, nondistended MUSCULOSKELETAL: Extremities without clubbing, cyanosis, or edema. NEURO: AAOx4, no focal deficits. Results - Labs CBC & Chem 7: 04/08/18 05:29 04/09/18 06:35 - Procedures L4-S1 kyphoplasty Assessment and Plan - Assessment (1) Closed L4 vertebral fracture Code(s): S32.049A - Unspecified fracture of fourth lumbar vertebra, initial encounter for closed fracture Status: Acute - Plan 82-year-old F with a PMHx of Atrial Fibrillation anticoagulated on Eliquis, HTN and HLD admitted for acute L4 vertebral fracture managed nonoperatively per neurosurgery recommendations but patient desires kyphoplasty 1. Multiple Vertebral Fractures Acute back pain s/p L4-S1 kyphoplasty. Stable CT of the lumbar and thoracic spine significant for compression deformities at T12, L1, L2 and L3 vertebral bodies that are likely chronic. There is a horizontal lucency seen throughout the L4 vertebral body concerning for acute fracturing. Continue on Vitamin D, Calcium, and Gabapentin 2. Atrial fibrillation, rate controlled Restart Eliquis 04/10 per neurosurgery Continue Metoprolol Monitor 3. DAVIE superimposed on chronic kidney disease stage III with hyperkalemia Improved Holding Lasix and Vasotec unless BP spikes Avoid nephrotoxic agents Monitor kidney function repeat BMP s/p IVF's 4. Hyperglycemia, resolved HgbA1c 5.9 5. Hypertension, chronic Stable Continue Metoprolol Holding Vasotec, Lasix, and K Resume if necessary pending BP Continue to monitor BP and adjust treatment accordingly 6. Constipation. Positive bowel movement continue bowel regimen DVT prophylaxis: SCD's, Eliquis Discharge Planning: Jessicaa nuvia casey; pending SNF insurance authorization (1) Closed L4 vertebral fracture Qualifiers: Encounter type: initial encounter Fracture morphology: wedge compression Qualified Code(s): S32.040A - Wedge compression fracture of fourth lumbar vertebra, initial encounter for closed fracture
[2018-04-11 09:55] VITALS: O2SAT 93
[2018-04-11] MEDS: Senna/Docusate Sodium 8.6/50 MG Tablet PO SCH (10:18)
[2018-04-11] MEDS: Calcium/Vitamin D 250/125 MG Tablet PO SCH (10:18)
[2018-04-11] MEDS: Gabapentin 100 MG Capsule PO SCH ×2 (10:19→12:45)
[2018-04-11 13:04] VITALS: BP 134/58; PULSE 56; RESP 16; TEMP 97.6
== END 2018-04-11 13:41 ==
LOC: NEDA 18:13 → NEPE 18:13 → N06 04-03 00:28
PROVIDERS: ADMIT Internal Medicine; ATTEND Internal Medicine